=== PATIENT | female | born 1950 | race Caucasian/White ===

== ENCOUNTER 2016-02-18 08:24 | Emergency (ER) | payer MEDICARE ==
[2016-02-18] MEDS ORDERED: ONDANSETRON HCL/PF 4 MG/ 2ML VIAL IVP ONE ×2 (08:38→11:26)
[2016-02-18] MEDS ORDERED: 0.9 % SODIUM CHLORIDE 1,000 ML IV ONE (08:38)
[2016-02-18 08:48] LABS: BASOPHILS % 0.7 (0.0-1.5); EOSINOPHILS % 2.7 % (0.0-6.8); LYMPHOCYTES # 1.2 # k/uL (0.6-4.0); MEAN CORPUSCULAR HEMOGLOBIN 31.1 pg (28.0-34.0); MONOCYTES # 0.3 # k/uL (0.0-0.9); MONOCYTES % 3.5 % (0.0-11.0); NEUTROPHILS # 6.2 # k/uL (1.4-7.7)
--- NOTE | 2016-02-18 08:49 | ED Physician Documentation ---
Nausea/Vomiting/Diarrhea - HISTORIAN Historian: patient - HPI Chief Complaint: Nausea,Vomiting,Diarrhea Onset: days ago (3) Further Comments: yes (65 year old female patient presents with complaints of diarrhea x 3 days with nausea. Patient denies any vomiting. Old records reviewed.) - Associated Symptoms Diarrhea: mucous Abdominal Pain: diffuse - ROS CONST: recent illness CVS/RESP: denies: chest pain, shortness of breath, cough, dry cough, non- productive cough, productive cough, bloody cough, other GI/: constipation (last week) EYES/ENT: none MS/SKIN/LYMPH: denies: joint pain NEURO/PSYCH: none - PAST HX Past History: none Other History: other (diverticulosis, C diff) Surgeries/Procedures: cholecystectomy, hysterectomy, BLT Allergies/Adverse Reactions: Allergies Allergy/AdvReac Type Severity Reaction Status Date / Time codeine [Codeine] AdvReac Severe stomach Verified 02/18/16 08:50 nalbuphine HCl [From Nubain] AdvReac Severe stomach Verified 02/18/16 08:50 Penicillins AdvReac Intermediate Hives Verified 02/18/16 08:50 Home Medications: Ambulatory Orders Medication Instructions Recorded Docusate Sodium [Colace] 100 mg PO DAILY av 07/26/15 Citalopram Hydrobromide 10 mg PO DAILY 01/05/16 [Citalopram HBr] Carvedilol [Coreg] 6.25 mg PO BS 02/18/16 Ciprofloxacin HCl [Cipro] 500 mg PO BID #20 tablet 02/18/16 Furosemide [Lasix] 80 mg PO DAILY 02/18/16 Promethazine HCl [Phenergan] 25 mg PO Q8H PRN #30 tablet 02/18/16 metroNIDAZOLE [Flagyl] 500 mg PO Q6H #40 tablet 02/18/16 - SOCIAL HX Smoking History: cigarettes - FAMILY HX Family History: denies: none - VITAL SIGNS Vital Signs: Vital Signs Temp Pulse Resp BP Pulse Ox 98.2 F 57 L 20 112/58 94 02/18/16 12:54 02/18/16 12:54 02/18/16 12:54 02/18/16 12:54 02/18/16 12:54 - REVIEWED ASSESSMENTS Nursing Assessment Reviewed: Yes Vitals Reviewed: Yes Progress - Progress Progress: Extensive discussion with patient regarding history and diverticulosis. Patient has never seen GI, states her last colonoscopy was "I can't remember, it was that long ago". Reports nausea related to po flagyl after last ER visit. Patient has history of C Diff 08/2015, stool will likely still be positive. Last TSH 8.7 in 06/2015 - patient states there was no change in her levothyroxine. Will recheck thyroid panel. Strongly encouraged GI consult. Patient states "I had all kinds of test at [facility] for this". Discussed CT with admissions manager rn. Maximum weight is 350 pounds, recommends no imaging at [facility]. Will start IV antibiotics in ER. stool sent for C Diff. Patient has history of C Dif in August 2015. Patient medicated for pain with Morphine. Discussed treatment options - offered to transfer for GI consult, admit to [facility] for antibiotics and fluids; patient does not want to be admitted, prefers to try outpatient treatment. Concerned she cannot afford "expensive antibiotics". Coupon provided for flagyl and norco. Cipro and promethazine prescribed off $ 4. ED Results Lab/Radiology - Lab Results Lab Results: Lab Results 02/18/16 02/18/16 08:45 08:45 WBC 8.01 K/ul K/ul (4.00-12.00) RBC 4.79 M/ul M/ul (3.90-5.20) Hgb 14.9 g/dL g/dL (12.0-16.0) Hct 45.5 % % (34.5-46.5) MCV 94.9 fl fl (80.0-100.0) MCH 31.1 pg pg (28.0-34.0) MCHC 32.7 g/dL g/dL (30.0-36.0) RDW 14.8 % H % (11.3-14.3) Plt Count 260 K/mm3 K/mm3 (130-400) Neut % (Auto) 76.8 % % (39.0-79.0) Lymph % (Auto) 15.2 % L % (16.0-50.0) [place] % (Auto) 3.5 % % (0.0-11.0) Eos % (Auto) 2.7 % % (0.0-6.8) Baso % (Auto) 0.7 (0.0-1.5) Neut # 6.2 # k/uL # k/uL (1.4-7.7) Lymph # 1.2 # k/uL # k/uL (0.6-4.0) [place] # 0.3 # k/uL # k/uL (0.0-0.9) Eos # 0.2 # k/uL # k/uL (0.0-0.6) Baso # 0.1 # k/uL # k/uL (0.0-0.5) Reactive Lymphs % 1.0 % % (0.0-5.0) Reactive Lymphs # 0.1 # k/uL # k/uL (0.0-0.8) Sodium 132 mmol/L L mmol/L (136-145) Potassium 3.7 mmol/L mmol/L (3.5-5.0) Chloride 99 mmol/L mmol/L (98-110) Carbon Dioxide 33 mmol/L H mmol/L (20-32) BUN 16 mg/dL mg/dL (10-26) Creatinine 0.9 mg/dL mg/dL (0.4-1.5) Estimated Creat Clear 170 Est GFR ( Amer) > 60 (60 - ) Est GFR (Non-Af Amer) > 60 (60 - ) Glucose 123 mg/dL H mg/dL (70-99) Calcium 8.2 mg/dL L mg/dL (8.5-10.5) Total Bilirubin 0.5 mg/dL mg/dL (0.2-1.2) AST 27 U/L U/L (0-41) ALT 30 U/L U/L (0-45) Alkaline Phosphatase 75 U/L U/L (46-116) Total Protein 7.4 g/dL g/dL (6.0-8.5) Albumin 4.2 g/dL g/dL (3.0-5.5) - Orders Orders: ED Orders Category Date Time Status Place Saline Lock/IV NOW Care 02/18/16 08:38 Active CBC/PLATELET/DIFF Stat Lab 02/18/16 08:45 Completed CLOSTRRIDIUM DIFFICILE BY PCR Stat Lab 02/18/16 09:45 Received CMP Stat Lab 02/18/16 08:45 Completed SED RATE WESTERGREN (WSR) Urgent Lab 02/18/16 08:45 Received THYROID PROFILE Urgent Lab 02/18/16 08:45 Received UA W/MICRO IF INDICATED Stat Lab 02/18/16 08:38 Ordered 0.9 % Sodium Chloride [Normal Saline] 1,000 ml Med 02/18/16 08:38 Discontinued IV NOW Ketorolac Tromethamine [Toradol] Med 02/18/16 09:40 Discontinued 30 mg IVP NOW ONE Levofloxacin 500Mg/D5w 100Ml [Levaquin] 100 ml Med 02/18/16 09:56 Discontinued IV .STK-MED Levofloxacin 500Mg/D5w 100Ml [Levaquin] 500 mg Med 02/18/16 09:40 Discontinued Premix Bag [Premix Fluid] 1 bag IV NOW Morphine Sulfate [DepoDUR] Med 02/18/16 10:45 Discontinued 4 mg IVP NOW ONE Ondansetron HCl/Pf [Zofran 4 mg/2 ml] Med 02/18/16 08:38 Discontinued 4 mg IVP NOW ONE Ondansetron HCl/Pf [Zofran 4 mg/2 ml] Med 02/18/16 11:26 Discontinued 4 mg IVP NOW ONE metroNIDAZOLE/SODIUM CHLORIDE [Flagyl] 100 ml Med 02/18/16 09:56 Discontinued IV .STK-MED metroNIDAZOLE/SODIUM CHLORIDE [Flagyl] 500 mg Med 02/18/16 09:40 Discontinued Premix Bag [Premix Fluid] 1 bag IV NOW Oxygen Daily Oxygen 02/18/16 09:15 Ordered Nausea Physical Exam - EXAM General Appearance: mild distress EENT: eye inspection normal, no signs of dehydration, RACHEL Respiratory: no resp distress, chest non-tender, breath sounds normal CVS: reg rate & rhythm, heart sounds normal, equal pulses, no murmur, no gallop , PMI nml, no JVD, no friction rub, 24 Abdomen: non-tender, no organomegaly, tenderness (generalized, no specific point tenderness). No: abnml bowel sounds, McBurney's point tender, Rovsing's sign Back: non-tender, painless ROM Skin: normal color, warm/dry, NR, INT, PAL, DR Extremities: non-tender, normal range of motion, no evidence of injury, no edema , J, [employer] Neuro/Psych: oriented X3, CN's nml as tested, motor nml, sensation nml, mood/ affect nml Discharge Clincal Impression: Diverticulitis Qualifiers: Diverticulitis site: unspecified part of intestinal tract Diverticulitis bleeding: without bleeding Diverticulitis complication: without perforation or abscess Qualified Code(s): K57.92 - Diverticulitis of intestine, part unspecified, without perforation or abscess without bleeding Diarrhea Qualifiers: Diarrhea type: unspecified type Qualified Code(s): R19.7 - Diarrhea, unspecified Prescriptions: Ciprofloxacin HCl [Cipro] 500 mg PO BID #20 tablet Promethazine HCl [Phenergan] 25 mg PO Q8H PRN #30 tablet PRN Reason: Nausea / Vomiting metroNIDAZOLE [Flagyl] 500 mg PO Q6H #40 tablet Referrals: Emmanuel Taylor MD [Primary Care Provider] - 2 Days Home Medications: Ambulatory Orders Docusate Sodium [Colace] 100 mg PO DAILY av 07/26/15 Citalopram Hydrobromide [Citalopram HBr] 10 mg PO DAILY 01/05/16 Carvedilol [Coreg] 6.25 mg PO BS 02/18/16 Ciprofloxacin HCl [Cipro] 500 mg PO BID #20 tablet 02/18/16 Furosemide [Lasix] 80 mg PO DAILY 02/18/16 Promethazine HCl [Phenergan] 25 mg PO Q8H PRN #30 tablet 02/18/16 metroNIDAZOLE [Flagyl] 500 mg PO Q6H #40 tablet 02/18/16 Condition: Stable Disposition: 01 HOME, SELF-CARE Decision to Admit: NO Decision Time: 12:45
[2016-02-18 09:09] LABS: eGFR (African) > 60; eGFR (Non-African) > 60
[2016-02-18] MEDS ORDERED: KETOROLAC TROMETHAMINE 30 MG/1ML VIAL IVP ONE (09:40)
[2016-02-18] MEDS ORDERED: metroNIDAZOLE/SODIUM CHLORIDE 500 MG in PREMIX BAG 1 BAG IV ONE (09:40)
[2016-02-18] MEDS ORDERED: LEVOFLOXACIN 500MG/D5W 100ML 500 MG in PREMIX BAG 1 BAG IV ONE (09:40)
[2016-02-18] MEDS ORDERED: LEVOFLOXACIN 500MG/D5W 100ML 100 ML IV ONE (09:56)
[2016-02-18] MEDS ORDERED: metroNIDAZOLE/SODIUM CHLORIDE 100 ML IV ONE (09:56)
[2016-02-18] MEDS ORDERED: MORPHINE SULFATE 4 MG/ML DISP.SYRIN IVP ONE (10:45)
[2016-02-18 12:56] VITALS: BP 112/58
[2016-02-18 21:11] LABS: T3-UPTAKE 25.7 % (25.4-41.2)
== END 2016-02-18 12:30 | disposition home or self-care (01) ==
LOC: ED 08:24
DX: K57.92 Diverticulitis of intestine, part unspecified, without perforation or abscess without bleeding (principal); R19.7 Diarrhea, unspecified
CPT/HCPCS: 80053; 84436; 84479; 85025; 85651; 87493; J1885; J1956; J2270; J2405; J3490; J7030; 96365; 96367; 96375; 96376; 99283; S1016

== ENCOUNTER 2016-03-28 18:52 | Inpatient (IN) | payer MEDICARE, OTHER ==
[2016-03-28] MEDS ORDERED: BUDESONIDE 0.5MG/2ML AMPUL.NEB NEB ONE (20:05)
[2016-03-28] MEDS ORDERED: IPRATROPIUM/ALBUTEROL SULFATE 3 ML AMPUL.NEB NEB ONE ×3 (20:05→22:27)
[2016-03-28] MEDS ORDERED: ONDANSETRON HCL/PF 4 MG/ 2ML VIAL IVP ONE (20:07)
[2016-03-28] MEDS ORDERED: 0.9 % SODIUM CHLORIDE 1,000 ML IV ONE (20:07)
[2016-03-28] MEDS ORDERED: BUDESONIDE 0.5MG/2ML AMPUL.NEB NEB SCH (21:00)
[2016-03-28 21:11] LABS: BASOPHILS % 0.6 (0.0-1.5); EOSINOPHILS % 0.4 % (0.0-6.8); LYMPHOCYTES # 0.4 # k/uL (0.6-4.0); MEAN CORPUSCULAR HEMOGLOBIN 32.2 pg (28.0-34.0); MONOCYTES # 0.4 # k/uL (0.0-0.9); NEUTROPHILS # 6.6 # k/uL (1.4-7.7)
[2016-03-28 21:19] LABS: eGFR (African) > 60; eGFR (Non-African) > 60
[2016-03-28] MEDS ORDERED: KETOROLAC TROMETHAMINE 30 MG/1ML VIAL IVP ONE (21:29)
[2016-03-28] MEDS ORDERED: LEVOFLOXACIN 500MG/D5W 100ML 500 MG in PREMIX BAG 1 BAG IV ONE (21:56)
[2016-03-28] MEDS ORDERED: LEVOFLOXACIN 500MG/D5W 100ML 100 ML IV ONE (22:13)
[2016-03-28] MEDS ORDERED: BENZONATATE 100 MG CAPSULE PO ONE (22:24)
[2016-03-28] MEDS ORDERED: guaiFENesin DM 100 MG/10 MG/5 ML 118ML BOTTLE PO ONE (22:24)
[2016-03-28] MEDS ORDERED: methylPREDNISolone SOD SUCC 125 MG/2 ML VIAL IVP ONE (22:27)
[2016-03-28] MEDS ORDERED: methylPREDNISolone SOD SUCC 125 MG/2 ML VIAL ONE (22:28)
[2016-03-28] MEDS ORDERED: FUROSEMIDE 20 MG/2 ML VIAL IVP ONE (22:54)
--- NOTE | 2016-03-28 23:10 | History and Physical Report ---
History of Present Illnes - History of Present Illness Reason for Visit: Shortness of breath History of Present Illness: Patient presented to ER with SOB. Symptoms started the day before when she started coughing and congestion. Noted wheezing and feelings of sweating and chilling. works in a residential with influenza patients. He had been ill several days ago. Noted to have RA SAT of 85%. Improved with O2, duonebs, and IV steroids. CXR showed likely RLL infiltrate. Patient will be admitted for treatment. - Past Medical History Cardiac: CHF (EF 25% in 2009 - systolic; Was to see Dr. Coronel 12/01 for Echo but did not keep appt), HTN, Hyperlipidemia, Other (Morbid obesity, thyroid cancer) Pulmonary: COPD. denies: Pulmonary embolus Gastrointestinal: Diverticulosis (with h/o diverticulitis.) Infectious Disease: Other (C. diff 08/01) Endocrine: Hypothyroidism. denies: Diabetes - Past Surgical History Past Surgical History: Cholecystectomy, Hysterectomy, Tubal Ligation, Other ( thyroidectomy) - Past Family History Father Family History: Cancer, Mother Family History: CAD, Hypertension, Other (CKD) - Past Social History Smoke: # pack years (40+), 1 pack per day Occupation: On disability for obesity/back pain/CHF Alcohol: Rare Drugs: None Lives: Roommate (significant other who is also her ex ) - Health Maintenance Health Maintenance: Tetanus (2015 Tdap), Pneumococcal Vaccine (Prevnar 08/31) Influenza Vaccine: Current for this Influenza Season Pneumonia Vaccine: Yes Resuscitation Status: Full Code Review of Systems - Review of Systems Constitutional: Chills, Sweats, Weakness. negative: Fever Eyes: negative: pain ENT: Throat Pain ("Scratchy"). negative: Ear Pain, Ear Discharge Respiratory: Cough, Shortness of Breath, Sputum, Wheezing Cardiovascular: negative: Chest Pain, Palpitations Gastrointestinal: negative: Nausea, Vomiting, Abdominal Pain, Diarrhea Genitourinary: negative: Dysuria Musculoskeletal: negative: Back Pain Skin: negative: Rash Neurological: Weakness - Medications/Allergies Allergies/Adverse Reactions: Allergies Allergy/AdvReac Type Severity Reaction Status Date / Time codeine [Codeine] AdvReac Severe stomach Verified 02/18/16 08:50 nalbuphine HCl [From Nubain] AdvReac Severe stomach Verified 02/18/16 08:50 Penicillins AdvReac Intermediate Hives Verified 02/18/16 08:50 Home Medications: Home Medications Ranitidine HCl 300 mg PO 0717 03/31/16 Current Inpatient Medications: Current Inpatient Medications Budesonide (Pulmicort) 0.5 mg NEB BID CHINTAN Last Admin: 03/28/16 20:10 Dose: 0.5 mg Exam - Exam General: Alert, Oriented to Person, Oriented to Place, Oriented to Time, Cooperative HEENT: Atraumatic, PERRLA, EOMI, Mouth Mucous membr. moist/Rosa Neck: Normal Range of Motion Lungs: Wheezes Cardiovascular: Regular rate Abdomen: Normal bowel sounds, Soft, No tenderness Integumentary: Normal Extremities: No edema Neurological: Generalized Weakness Psych/Mental Status: Mental status NL, Mood NL, Appropriate Affect, Intact Judgment Assessment/Plan - Assessment/Plan (1) CAD (coronary artery disease) Status: Chronic Current Visit: No Qualifiers: Coronary Disease-Associated Artery/Lesion type: [place] artery [place] vs. transplanted heart: [place] heart Associated angina: without angina Qualified Code(s): I25.10 - Atherosclerotic heart disease of [place] coronary artery without angina pectoris Plan: Awaiting cardiac labs at this time to r/o any cardiac injury. (2) H/O CHF Status: Acute Current Visit: Yes Plan: Given CXR appearance of infiltrate vs possible early overload, patient was given IV lasix in ER. BNP pending. Encouraged her to get ECHO as an outpatient. (3) Community acquired bacterial pneumonia Status: Acute Current Visit: Yes Plan: IV levaquin and zithromax started. Blood cultures pending. O2 to keep SAT's > 90%. Duo nebs and IV steroids. Influenza testing negative. Will send Respiratory Viral Pane (4) Hypothyroidism Status: Chronic Current Visit: No (5) Obesity (BMI 35.0-39.9 without comorbidity) Status: Chronic Current Visit: No (6) Tobacco user Status: Chronic Current Visit: No Plan: Smoking cessation counseling by staff. (7) COPD exacerbation Status: Acute Current Visit: Yes Plan: IV steroids, O2, duonebs ordered. VTE Assessment - RISK FACTOR SCORE VTE RISK FACTOR SCORES: AGE OVER 60 YEARS, ACUTE INFECTION OTHER THEN SEPSIS, OBESITY - RISK VTE HIGH RISK: SCORE OF 3-4 (RISK PROXIMAL DVT 4-8%) PROPHYLAXIS NEEDED
[2016-03-28] MEDS ORDERED: BISACODYL 5 MG TABLET.DR PO PRN (23:24)
[2016-03-28] MEDS ORDERED: SALINE FLUSH 10 ML DISP.SYRIN IVF ONE (23:27)
[2016-03-28] MEDS ORDERED: 0.9 % SODIUM CHLORIDE 250 ML IV ONE (23:45)
[2016-03-28] MEDS ORDERED: AZITHROMYCIN 500 MG VIAL IV ONE (23:45)
[2016-03-28] MEDS: ONDANSETRON HCL 4 MG TAB.RAPDIS PO PRN (23:50)
[2016-03-28] MEDS: 0.9 % SODIUM CHLORIDE 1,000 ML IV SCH (23:52)
[2016-03-28] MEDS: POTASSIUM CHLORIDE 10 MEQ TABLET.ER PO SCH (23:52)
[2016-03-28] MEDS: AZITHROMYCIN 500 MG in 0.9 % SODIUM CHLORIDE 250 ML IV SCH (23:56)
[2016-03-29] MEDS: ENOXAPARIN SODIUM 30 MG/0.3 ML DISP.SYRIN SQ SCH ×2 (00:33→20:31)
[2016-03-29] MEDS: ALPRAZOLAM 0.5 MG TABLET PO PRN ×2 (00:38→20:34)
[2016-03-29 00:53] VITALS: BMI 54.6
--- NOTE | 2016-03-29 01:46 | Diagnostic Imaging Report ---
MARYANN FOSS~ [facility] [address] [address] ~ ~ ~ ~ Report Submission Date: Mar 28, 2016 8:52:59 PM FILTER CHANGER Patient ~ Study Name: ALESSIA JEFF ~ Date: Mar 28, 2016 8:29:19 PM FILTER CHANGER ~ Modality Type: CR Gender: F ~ Description: CHEST : 50 ~ Institution: [facility] Physician: MARYANN FOSS ~ ~ ~ ~ Portable chest History: Dyspnea and cough Findings: The exam is limited by obesity. Cardiomegaly, pulmonary vascular congestion, and right basilar /perihilar infiltrate or edema are observed. Small pleural effusions cannot be excluded. Right lung infiltrate or edema has increased since the July 06, 2015 exam. Impression: 1. Cardiomegaly and pulmonary vascular congestion without change. 2. Right basilar and perihilar infiltrates versus edema. 3. The left lower lobe is obscured due to obesity and portable technique. ~ Electronically signed on Mar 28, 2016 8:52:59 PM FILTER CHANGER by: Sagar RASHID
[2016-03-29] MEDS: guaiFENesin DM 100 MG/10 MG/5 ML 118ML BOTTLE PO SCH ×6 (05:13→20:32)
[2016-03-29] MEDS: IPRATROPIUM/ALBUTEROL SULFATE 3 ML AMPUL.NEB NEB SCH ×6 (05:13→22:03)
[2016-03-29] MEDS: BUDESONIDE 0.5MG/2ML AMPUL.NEB NEB SCH ×6 (05:13→22:05)
[2016-03-29 05:14] LABS: APPEARANCE,URINE CLOUDY (CLEAR); COLOR,URINE AMBER (YELLOW); OCCULT BLOOD,URINE TRACE-INTACT (NEGATIVE)
[2016-03-29] MEDS ORDERED: SALINE FLUSH 10 ML DISP.SYRIN IVF ONE ×3 (05:57→19:56)
[2016-03-29] MEDS ORDERED: FUROSEMIDE 40 MG/4 ML VIAL ONE ×2 (06:02→15:20)
[2016-03-29 06:34] LABS: MEAN CORPUSCULAR HEMOGLOBIN 32.1 pg (28.0-34.0)
[2016-03-29] MEDS: LEVOTHYROXINE SODIUM 100 MCG TABLET PO SCH (06:45)
--- NOTE | 2016-03-29 07:01 | ED Physician Documentation ---
Upper Respiratory Symptoms - HISTORIAN Historian: patient - HPI Stated Complaint: nausea, hurts all over Chief Complaint: Cough/ Upper Respiratory Additional Information: nausea, headache, prod. cough Onset: days ago (2) Duration: sudden-Onset Context: denies: recent foreign travel, insect bite(s), tick(s), recent chemotherapy, multiple patients, same sx Severity: moderate Associated Symptoms: fever, productive cough Worsened by Deep Breath: No Further Comments: no - ROS CONST/EYES: denies: weakness, eye redness, eye itching CVS/RESP: shortness of breath (exacerbated copd), other (cough) LYMPH: denies: leg swelling, rash, swollen glands, ankle swelling GI/: none NEURO/PSYCH: other (headache) MS/SKIN: denies: joint pain, muscle aches, rash - PAST HX Lung Disease: COPD, other Other History: other (cad, chf, hypothyroidism) Surgeries/Procedures: cholecystectomy, hysterectomy, BLT, other (ortho) Immunizations: referred to PCP Allergies/Adverse Reactions: Allergies Allergy/AdvReac Type Severity Reaction Status Date / Time codeine [Codeine] AdvReac Severe stomach Verified 02/18/16 08:50 nalbuphine HCl [From Nubain] AdvReac Severe stomach Verified 02/18/16 08:50 Penicillins AdvReac Intermediate Hives Verified 02/18/16 08:50 Home Medications: Ambulatory Orders Medication Instructions Recorded Docusate Sodium [Colace] 100 mg PO DAILY av 07/26/15 Citalopram Hydrobromide 10 mg PO DAILY 01/05/16 [Citalopram HBr] Carvedilol [Coreg] 6.25 mg PO BS 02/18/16 Ciprofloxacin HCl [Cipro] 500 mg PO BID #20 tablet 02/18/16 Furosemide [Lasix] 80 mg PO DAILY 02/18/16 - SOCIAL HX Smoking History: cigarettes Alcohol Use: occasionally Drug Use: none - FAMILY HX Family History: other (cancer, htn, cad) - VITAL SIGNS Vital Signs: Vital Signs Temp Pulse Resp BP Pulse Ox 98.6 F 59 L 22 113/67 95 03/29/16 05:44 03/29/16 05:44 03/29/16 05:44 03/29/16 05:44 03/29/16 05:44 - REVIEWED ASSESSMENTS Nursing Assessment Reviewed: Yes Vitals Reviewed: Yes Progress - Results/Orders Results/Orders: ua, cmp, cbc, trop, bnp, amylase, flu a and b, cxr, blood cultures ordered - Progress Progress: pt. treated with levaquin, solu medrol, robitussin, potassium, zofran, pulmicort , normal saline, lasix, tessalon perles, duoneb in er Critical Care Note - Critical Care Note Total Time (mins): 0 ED Results Lab/Radiology - Lab Results Lab Results: Lab Results 03/28/16 03/28/16 03/28/16 21:50 20:54 20:54 WBC 7.40 K/ul K/ul (4.00-12.00) RBC 4.72 M/ul M/ul (3.90-5.20) Hgb 15.2 g/dL g/dL (12.0-16.0) Hct 44.3 % % (34.5-46.5) MCV 93.8 fl fl (80.0-100.0) MCH 32.2 pg pg (28.0-34.0) MCHC 34.3 g/dL g/dL (30.0-36.0) RDW 14.7 % H % (11.3-14.3) Plt Count 196 K/mm3 K/mm3 (130-400) Neut % (Auto) 88.3 % H % (39.0-79.0) Lymph % (Auto) 5.2 % L % (16.0-50.0) [place] % (Auto) 5.0 % % (0.0-11.0) Eos % (Auto) 0.4 % % (0.0-6.8) Baso % (Auto) 0.6 (0.0-1.5) Neut # 6.6 # k/uL # k/uL (1.4-7.7) Lymph # 0.4 # k/uL L # k/uL (0.6-4.0) [place] # 0.4 # k/uL # k/uL (0.0-0.9) Eos # 0.0 # k/uL # k/uL (0.0-0.6) Baso # 0.0 # k/uL # k/uL (0.0-0.5) Reactive Lymphs % 0.4 % % (0.0-5.0) Reactive Lymphs # 0.0 # k/uL # k/uL (0.0-0.8) Sodium 134 mmol/L L mmol/L (136-145) Potassium 4.1 mmol/L mmol/L (3.5-5.0) Chloride 97 mmol/L L mmol/L (98-110) Carbon Dioxide 35 mmol/L H mmol/L (20-32) BUN 13 mg/dL mg/dL (10-26) Creatinine 0.7 mg/dL mg/dL (0.4-1.5) Estimated Creat Clear 222 Est GFR ( Amer) > 60 (60 - ) Est GFR (Non-Af Amer) > 60 (60 - ) Glucose 120 mg/dL H mg/dL (70-99) Calcium 8.4 mg/dL L mg/dL (8.5-10.5) Total Bilirubin 0.5 mg/dL mg/dL (0.2-1.2) AST 62 U/L H U/L (0-41) ALT 40 U/L U/L (0-45) Alkaline Phosphatase 76 U/L U/L (46-116) Total Protein 7.8 g/dL g/dL (6.0-8.5) Albumin 4.6 g/dL g/dL (3.0-5.5) Amylase 42 U/L U/L (20-104) Urine Color Gaby (YELLOW) Urine Appearance Cloudy H (CLEAR) Urine pH 7.0 (5.0 - 8.0) Ur Specific [place] 1.025 (1.010-1.030) Urine Protein 2+ mg/dL H mg/dL (NEGATIVE) Urine Ketones Negative mg/dL mg/dL (NEGATIVE) Urine Occult Blood Trace-intact H (NEGATIVE) Urine Nitrite Negative (NEGATIVE) Urine Bilirubin Negative (NEGATIVE) Urine Urobilinogen 1.0 Eu Eu (0.2-1.0) Ur Leukocyte Esterase Negative (NEGATIVE) Urine Glucose Negative mg/dL mg/dL (NEGATIVE) - Radiology Radiology Impressions: cxr right sided infiltrate - Orders Orders: ED Orders Category Date Time Status Place Saline Lock/IV Now Care 03/28/16 20:07 Completed CHEST 1 VIEW [RAD] Routine Exams 03/28/16 Completed AMYLASE Routine Lab 03/28/16 20:54 Completed CBC/PLATELET/DIFF Routine Lab 03/28/16 20:54 Completed CMP Routine Lab 03/28/16 20:54 Completed 0.9 % Sodium Chloride [Normal Saline] 1,000 ml Med 03/28/16 20:07 Discontinued IV Q1H Benzonatate [Tessalon] Med 03/28/16 22:24 Discontinued 200 mg PO NOW ONE Budesonide [Pulmicort] Med 03/28/16 20:05 Discontinued 0.5 mg NEB .STK-MED ONE Budesonide [Pulmicort] Med 03/28/16 21:00 Discontinued 0.5 mg NEB BID Ipratropium/Albuterol Sulfate [Duoneb] Med 03/28/16 20:05 Discontinued 3 ml NEB .STK-MED ONE Ipratropium/Albuterol Sulfate [Duoneb] Med 03/28/16 20:07 Discontinued 3 ml NEB NOW ONE Ipratropium/Albuterol Sulfate [Duoneb] Med 03/28/16 22:27 Discontinued 3 ml NEB NOW ONE Ketorolac Tromethamine [Toradol] Med 03/28/16 21:29 Discontinued 30 mg IVP NOW ONE Levofloxacin 500Mg/D5w 100Ml [Levaquin] 100 ml Med 03/28/16 22:13 Discontinued IV .STK-MED Levofloxacin 500Mg/D5w 100Ml [Levaquin] 500 mg Med 03/28/16 21:56 Discontinued Premix Bag [Premix Fluid] 1 bag IV NOW Ondansetron HCl/Pf [Zofran 4 mg/2 ml] Med 03/28/16 20:07 Discontinued 8 mg IVP NOW ONE guaiFENesin DM [Robitussin Dm] Med 03/28/16 22:24 Discontinued 10 ml PO NOW ONE methylPREDNISolone SOD SUCC [Solu-MEDROL] Med 03/28/16 22:28 Discontinued 125 mg .ROUTE .STK-MED ONE methylPREDNISolone SOD SUCC [Solu-MEDROL] Med 03/28/16 22:27 Discontinued 125 mg IVP NOW ONE Upper Respiratory Symptoms - EXAM General Appearance: alert, moderate distress EENT: eyes nml inspection, nml ENT inspection, lids & conjunct. nml, PERRL, ear nml Neck: normal inspection, thyroid normal, supple Respiratory: no resp. distress, decreased air movement, wheezes. No: rales, rhonchi Abdomen: non-tender, no organomegaly, nml bowel sounds, no distention CVS: reg rate & rhythm, heart sounds normal, equal pulses, no murmur, no gallop , PMI nml, no JVD Skin: color nml, no rash, diaphoresis (warm) Extremities: non-tender, normal range of motion, no evidence of injury, no edema Neuro/Psych: oriented x3, neuro intact, mood/affect nml Discharge Clincal Impression: Pneumonia Qualifiers: Pneumonia type: due to unspecified organism Laterality: right Lung location: middle lobe of lung Qualified Code(s): J18.1 - Lobar pneumonia, unspecified organism Home Medications: Ambulatory Orders Docusate Sodium [Colace] 100 mg PO DAILY av 07/26/15 Citalopram Hydrobromide [Citalopram HBr] 10 mg PO DAILY 01/05/16 Carvedilol [Coreg] 6.25 mg PO BS 02/18/16 Ciprofloxacin HCl [Cipro] 500 mg PO BID #20 tablet 02/18/16 Furosemide [Lasix] 80 mg PO DAILY 02/18/16 Comments: case discussed with Dr. Tatum, accepts admission Condition: Stable Disposition: ADMITTED INPATIENT Decision to Admit: [id number] Decision Time: 23:00
[2016-03-29 07:07] LABS: eGFR (African) > 60; eGFR (Non-African) > 60
[2016-03-29] MEDS: ONDANSETRON HCL 4 MG TAB.RAPDIS PO PRN (07:38)
[2016-03-29] MEDS: CARVEDILOL 6.25 MG TABLET PO SCH ×2 (08:07→18:00)
[2016-03-29] MEDS: CITALOPRAM HYDROBROMIDE 20 MG TABLET PO SCH (08:08)
[2016-03-29] MEDS: POTASSIUM CHLORIDE 10 MEQ TABLET.ER PO SCH ×2 (08:10→20:31)
[2016-03-29] MEDS: NAPROXEN 250 MG TABLET PO SCH ×2 (08:10→20:32)
[2016-03-29] MEDS ORDERED: LEVOFLOXACIN 500MG/D5W 100ML 100 ML IV ONE (08:14)
[2016-03-29] MEDS: LEVOFLOXACIN 500MG/D5W 100ML 500 MG in PREMIX BAG 1 BAG IV SCH (08:14)
--- NOTE | 2016-03-29 08:19 | Diagnostic Imaging Report ---
[facility] [address] [facility] [address] [address] Report Submission Date: Mar 29, 2016 8:13:44 AM RANGE TECHNICIAN Patient Study Name: ALESSIA JEFF Date: Mar 29, 2016 7:46:33 AM RANGE TECHNICIAN Modality Type: CR Gender: F Description: CHEST : 50 Institution: [facility] Physician: [facility] [place]/MED SURG Chest PA and lateral views Clinical history: Cough and fever, history of prior pneumonia There is cardiomegaly with atherosclerotic thoracic aorta . Mild pulmonary venous congestion. Prominent vasculature in the lung bases could be consistent with bibasilar infiltrates , very similar to the previous study of March 28, [address] of the chest without IV contrast might be helpful in this case to differentiate between pulmonary venous congestion or pneumonia . Impression: As above Electronically signed on Mar 29, 2016 8:13:44 AM RANGE TECHNICIAN by: Emmanuel RASHID
[2016-03-29] MEDS: FUROSEMIDE 40 MG/4 ML VIAL IVP SCH ×2 (08:52→20:43)
[2016-03-29 08:56] LABS: MONOCYTES % 1 % (0-11); SEGMENTED NEUTROPHILS % 57 % (39-79)
[2016-03-29] MEDS ORDERED: methylPREDNISolone SOD SUCC 125 MG/2 ML VIAL IVP SCH (09:00)
[2016-03-29] MEDS: 0.9 % SODIUM CHLORIDE 1,000 ML IV SCH ×2 (10:35→22:03)
--- NOTE | 2016-03-29 12:52 | Inpatient Progress Note ---
Subjective - Required Recertification Statement I anticipate X number of days because-include discharge plan: 2 days - Review of Systems Events since last encounter: patient states that she is doing some better than yesterday. Patient continued to have a cough productive of some white to green phlegm. No hemoptysis noted. Patient states that her shortness of breath and dyspnea. Does seem to be improved. Patient continued to have some fever or chills. Patient denies any chest pain. patient does feel that the hyperlipidemia nebulization treatment are helping some. General: Chills (6), Other (fever) Pulmonary: Dyspnea, Cough. Denies: Pleuritic Chest Pain Cardiovascular: Denies: Chest Pain, Palpitations Gastrointestinal: Denies: Nausea, Vomiting, Abdominal Pain Objective - Exam Vitals and I&O: Vital Signs Temp 97.9 F 03/29/16 09:00 Pulse 68 03/29/16 11:00 Resp 18 03/29/16 10:00 BP 136/63 03/29/16 09:00 Pulse Ox 95 03/29/16 05:44 Intake & Output 03/28/16 03/29/16 03/29/16 23:59 11:59 23:59 Intake Total 572 Balance 572 Weight 149 kg 149 kg Intake: IV 572 Right Wrist 572 Other: Voiding Method Bedside Commode Bedside Commode # Voids 2 General: Alert, Oriented to Person, Oriented to Place, Oriented to Time Neck: Supple, No JVD Lungs: Wheezes (mild expiratory wheezing with forced espiration). No: Rales, Rhonchi Cardiovascular: Regular rate, Normal S1, Normal S2, No murmurs Abdomen: Normal bowel sounds, Soft, No tenderness, No hepatospenomegaly, Other ( obeses) Extremities: No clubbing, No cyanosis Skin: Normal, [place], Warm, Dry Psych/Mental Status: Mental status NL, Mood NL, Appropriate Affect, Intact Judgment - Results Results: Laboratory Results WBC 6.50 K/ul (4.00-12.00) 03/29/16 06:00 RBC 4.61 M/ul (3.90-5.20) 03/29/16 06:00 Hgb 14.8 g/dL (12.0-16.0) 03/29/16 06:00 Hct 44.1 % (34.5-46.5) 03/29/16 06:00 MCV 95.6 fl (80.0-100.0) 03/29/16 06:00 MCH 32.1 pg (28.0-34.0) 03/29/16 06:00 MCHC 33.5 g/dL (30.0-36.0) 03/29/16 06:00 RDW 14.7 % (11.3-14.3) H 03/29/16 06:00 Plt Count 192 K/mm3 (130-400) 03/29/16 06:00 Neut % (Auto) 88.3 % (39.0-79.0) H 03/28/16 20:54 Lymph % (Auto) 5.2 % (16.0-50.0) L 03/28/16 20:54 [place] % (Auto) 5.0 % (0.0-11.0) 03/28/16 20:54 Eos % (Auto) 0.4 % (0.0-6.8) 03/28/16 20:54 Baso % (Auto) 0.6 (0.0-1.5) 03/28/16 20:54 Neut # 6.6 # k/uL (1.4-7.7) 03/28/16 20:54 Lymph # 0.4 # k/uL (0.6-4.0) L 03/28/16 20:54 [place] # 0.4 # k/uL (0.0-0.9) 03/28/16 20:54 Eos # 0.0 # k/uL (0.0-0.6) 03/28/16 20:54 Baso # 0.0 # k/uL (0.0-0.5) 03/28/16 20:54 Seg Neutrophils % 57 % (39-79) 03/29/16 06:00 Band Neutrophils % 35 % (0-12) H 03/29/16 06:00 Lymphocytes % 7 % (16-50) L 03/29/16 06:00 Reactive Lymphs % 0.4 % (0.0-5.0) 03/28/16 20:54 Monocytes % 1 % (0-11) 03/29/16 06:00 Reactive Lymphs # 0.0 # k/uL (0.0-0.8) 03/28/16 20:54 Plt Morphology Comment Normal (NORMAL) 03/29/16 06:00 RBC Morph Comment Normal (NORMAL) 03/29/16 06:00 Sodium 129 mmol/L (136-145) L 03/29/16 06:00 Potassium 4.0 mmol/L (3.5-5.0) 03/29/16 06:00 Chloride 90 mmol/L (98-110) L 03/29/16 06:00 Carbon Dioxide 39 mmol/L (20-32) H 03/29/16 06:00 BUN 10 mg/dL (10-26) 03/29/16 06:00 Creatinine 0.7 mg/dL (0.4-1.5) 03/29/16 06:00 Estimated Creat Clear 221 03/29/16 06:00 Est GFR ( Amer) > 60 (60-) 03/29/16 06:00 Est GFR (Non-Af Amer) > 60 (60-) 03/29/16 06:00 Glucose 149 mg/dL (70-99) H 03/29/16 06:00 Calcium 7.8 mg/dL (8.5-10.5) L 03/29/16 06:00 Total Bilirubin 0.4 mg/dL (0.2-1.2) 03/29/16 06:00 AST 66 U/L (0-41) H 03/29/16 06:00 ALT 48 U/L (0-45) H 03/29/16 06:00 Alkaline Phosphatase 75 U/L (46-116) 03/29/16 06:00 NT-Pro-B Natriuret Pep 866.7 pg/mL (15.0-125.0) H 03/29/16 06:00 Total Protein 7.5 g/dL (6.0-8.5) 03/29/16 06:00 Albumin 4.3 g/dL (3.0-5.5) 03/29/16 06:00 Amylase 42 U/L (20-104) 03/28/16 20:54 Urine Color Gaby (YELLOW) 03/28/16 21:50 Urine Appearance Cloudy (CLEAR) H 03/28/16 21:50 Urine pH 7.0 (5.0 - 8.0) 03/28/16 21:50 Ur Specific [place] 1.025 (1.010-1.030) 03/28/16 21:50 Urine Protein 2+ mg/dL (NEGATIVE) H 03/28/16 21:50 Urine Ketones Negative mg/dL (NEGATIVE) 03/28/16 21:50 Urine Occult Blood Trace-intact (NEGATIVE) H 03/28/16 21:50 Urine Nitrite Negative (NEGATIVE) 03/28/16 21:50 Urine Bilirubin Negative (NEGATIVE) 03/28/16 21:50 Urine Urobilinogen 1.0 Eu (0.2-1.0) 03/28/16 21:50 Ur Leukocyte Esterase Negative (NEGATIVE) 03/28/16 21:50 Urine Glucose Negative mg/dL (NEGATIVE) 03/28/16 21:50 Assessment/Plan - Assessment/Plan (1) Pneumonia Status: Acute Current Visit: Yes Qualifiers: Pneumonia type: due to unspecified organism Laterality: right Lung location: middle lobe of lung Qualified Code(s): J18.1 - Lobar pneumonia, unspecified organism Assessment: patient will be continued on present antibiotic treatment. Patient will be continued. Hyperlipidemia nebulization. Treatment. I will decrease patient's steroids that she is getting IV. patient's WBC count is still normal at 6500. The patient does have fairly significant left shift with 57 seg and 35 bands. (2) Congestive heart failure Status: Acute Current Visit: No Assessment: patient does appear to have a component of congestive heart failure on with her present illness. Patient BNP was elevated some. We'll continue with IV Lasix at this time.
[2016-03-29] MEDS ORDERED: NICOTINE 14mg PATCH.TD24 TD SCH (13:00)
[2016-03-29] MEDS ORDERED: 0.9 % SODIUM CHLORIDE 250 ML IV ONE (19:55)
[2016-03-29] MEDS ORDERED: AZITHROMYCIN 500 MG VIAL IV ONE (19:56)
[2016-03-29] MEDS: AZITHROMYCIN 500 MG in 0.9 % SODIUM CHLORIDE 250 ML IV SCH (20:42)
[2016-03-29] MEDS: methylPREDNISolone SOD SUCC 40 MG/ML VIAL IVP SCH (20:42)
[2016-03-30] MEDS ORDERED: 0.9 % SODIUM CHLORIDE 1,000 ML IV ONE (03:13)
[2016-03-30] MEDS: 0.9 % SODIUM CHLORIDE 1,000 ML IV SCH ×2 (03:15→14:41)
[2016-03-30] MEDS: guaiFENesin DM 100 MG/10 MG/5 ML 118ML BOTTLE PO SCH ×6 (03:18→22:08)
[2016-03-30] MEDS: BUDESONIDE 0.5MG/2ML AMPUL.NEB NEB SCH ×6 (03:43→22:07)
[2016-03-30] MEDS: IPRATROPIUM/ALBUTEROL SULFATE 3 ML AMPUL.NEB NEB SCH ×6 (03:43→22:05)
[2016-03-30] MEDS: ACETAMINOPHEN 500 MG TABLET PO PRN ×2 (03:45→13:00)
[2016-03-30] MEDS ORDERED: SALINE FLUSH 10 ML DISP.SYRIN IVF ONE (05:17)
[2016-03-30] MEDS ORDERED: LEVOFLOXACIN 500MG/D5W 100ML 100 ML IV ONE (05:18)
[2016-03-30] MEDS ORDERED: FUROSEMIDE 40 MG/4 ML VIAL ONE ×2 (05:18→13:49)
[2016-03-30] MEDS: LEVOTHYROXINE SODIUM 100 MCG TABLET PO SCH (05:49)
[2016-03-30 06:59] LABS: BASOPHILS % 0.3 (0.0-1.5); EOSINOPHILS % 0.2 % (0.0-6.8); LYMPHOCYTES # 0.5 # k/uL (0.6-4.0); MEAN CORPUSCULAR HEMOGLOBIN 32.1 pg (28.0-34.0); MONOCYTES # 0.2 # k/uL (0.0-0.9); MONOCYTES % 3.5 % (0.0-11.0); NEUTROPHILS # 5.3 # k/uL (1.4-7.7)
[2016-03-30 07:24] LABS: eGFR (African) > 60; eGFR (Non-African) > 60
[2016-03-30] MEDS: CARVEDILOL 6.25 MG TABLET PO SCH ×2 (08:49→18:10)
[2016-03-30] MEDS: methylPREDNISolone SOD SUCC 40 MG/ML VIAL IVP SCH ×2 (09:06→19:56)
[2016-03-30] MEDS: FUROSEMIDE 40 MG/4 ML VIAL IVP SCH ×2 (09:13→20:03)
[2016-03-30] MEDS: CITALOPRAM HYDROBROMIDE 20 MG TABLET PO SCH (09:50)
[2016-03-30] MEDS: LEVOFLOXACIN 500MG/D5W 100ML 500 MG in PREMIX BAG 1 BAG IV SCH (09:50)
[2016-03-30] MEDS: NAPROXEN 250 MG TABLET PO SCH ×2 (09:51→20:00)
[2016-03-30] MEDS: POTASSIUM CHLORIDE 10 MEQ TABLET.ER PO SCH ×2 (09:51→19:59)
[2016-03-30] MEDS: ONDANSETRON HCL 4 MG TAB.RAPDIS PO PRN (15:19)
[2016-03-30] MEDS ORDERED: AZITHROMYCIN 500 MG VIAL IV ONE (19:45)
[2016-03-30] MEDS ORDERED: 0.9 % SODIUM CHLORIDE 250 ML IV ONE (19:45)
[2016-03-30] MEDS: ALPRAZOLAM 0.5 MG TABLET PO PRN (19:58)
[2016-03-30] MEDS: ENOXAPARIN SODIUM 30 MG/0.3 ML DISP.SYRIN SQ SCH (19:59)
[2016-03-30] MEDS: AZITHROMYCIN 500 MG in 0.9 % SODIUM CHLORIDE 250 ML IV SCH (19:59)
[2016-03-30] MEDS ORDERED: NITROGLYCERIN 0.4 MG TAB.SUBL SL ONE ×2 (20:21→21:40)
[2016-03-30] MEDS ORDERED: FUROSEMIDE 20 MG/2 ML VIAL IVP ONE (20:22)
[2016-03-30 21:13] LABS: CREATINE KINASE MB 3.1 ng/mL (0.3-5.0)
[2016-03-30] MEDS: SALINE FLUSH 10 ML DISP.SYRIN IV SCH (22:07)
--- NOTE | 2016-03-30 22:59 | Inpatient Progress Note ---
Subjective - Required Recertification Statement I anticipate X number of days because-include discharge plan: 2 days - Review of Systems Events since last encounter: Patient states that she seems some better today. Is still hivning some difficulties with breating but seems improved. Has a mild cough productive of yellow to white phlegm. Still having some wheezing at times. Is ambulating in her room some. Denies any chest pain or pressure. Appetite is fair. General: Denies: Chills HEENT: Head Aches Pulmonary: Dyspnea, Cough Cardiovascular: Denies: Chest Pain, Palpitations, Orthopnea, Edema Gastrointestinal: Denies: Nausea, Vomiting, Abdominal Pain Objective - Exam Vitals and I&O: Vital Signs Temp 98.2 F 03/30/16 22:00 Pulse 71 03/30/16 22:00 Resp 22 03/30/16 22:00 BP 150/81 03/30/16 22:00 Pulse Ox 93 03/30/16 22:00 Intake & Output 03/29/16 03/30/16 03/30/16 23:59 11:59 23:59 Intake Total 1430 120 680 Output Total 1250 Balance 1430 120 -570 Weight 146.51 kg Intake: IV 1090 Right Wrist 1090 Oral 340 120 680 Output: Urine 1250 Other: Voiding Method Bedside Commode Bedside Commode Bedside Commode # Voids 1 2 3 General: Alert, Oriented to Person, Oriented to Place, Oriented to Time, Cooperative, No acute distress Neck: Supple, No JVD Lungs: Normal air movement, Speaks full Sentences, Rales (few scattered bialterally). No: Wheezes, Rhonchi, Chest Wall Tenderness Cardiovascular: Regular rate, Normal S1, Normal S2, No murmurs Abdomen: Normal bowel sounds, Soft Extremities: Other (mild edema) Psych/Mental Status: Mental status NL, Mood NL, Appropriate Affect, Intact Judgment - Results Results: Laboratory Results WBC 6.10 K/ul (4.00-12.00) 03/30/16 06:30 RBC 4.67 M/ul (3.90-5.20) 03/30/16 06:30 Hgb 15.0 g/dL (12.0-16.0) 03/30/16 06:30 Hct 45.0 % (34.5-46.5) 03/30/16 06:30 MCV 96.2 fl (80.0-100.0) 03/30/16 06:30 MCH 32.1 pg (28.0-34.0) 03/30/16 06:30 MCHC 33.3 g/dL (30.0-36.0) 03/30/16 06:30 RDW 14.7 % (11.3-14.3) H 03/30/16 06:30 Plt Count 219 K/mm3 (130-400) 03/30/16 06:30 Neut % (Auto) 87.3 % (39.0-79.0) H 03/30/16 06:30 Lymph % (Auto) 8.1 % (16.0-50.0) L 03/30/16 06:30 [place] % (Auto) 3.5 % (0.0-11.0) 03/30/16 06:30 Eos % (Auto) 0.2 % (0.0-6.8) 03/30/16 06:30 Baso % (Auto) 0.3 (0.0-1.5) 03/30/16 06:30 Neut # 5.3 # k/uL (1.4-7.7) 03/30/16 06:30 Lymph # 0.5 # k/uL (0.6-4.0) L 03/30/16 06:30 [place] # 0.2 # k/uL (0.0-0.9) 03/30/16 06:30 Eos # 0.0 # k/uL (0.0-0.6) 03/30/16 06:30 Baso # 0.0 # k/uL (0.0-0.5) 03/30/16 06:30 Seg Neutrophils % 57 % (39-79) 03/29/16 06:00 Band Neutrophils % 35 % (0-12) H 03/29/16 06:00 Lymphocytes % 7 % (16-50) L 03/29/16 06:00 Reactive Lymphs % 0.6 % (0.0-5.0) 03/30/16 06:30 Monocytes % 1 % (0-11) 03/29/16 06:00 Reactive Lymphs # 0.0 # k/uL (0.0-0.8) 03/30/16 06:30 Plt Morphology Comment Normal (NORMAL) 03/29/16 06:00 RBC Morph Comment Normal (NORMAL) 03/29/16 06:00 Sodium 130 mmol/L (136-145) L 03/30/16 06:30 Potassium 4.0 mmol/L (3.5-5.0) 03/30/16 06:30 Chloride 86 mmol/L (98-110) L 03/30/16 06:30 Carbon Dioxide 40 mmol/L (20-32) H 03/30/16 06:30 BUN 17 mg/dL (10-26) 03/30/16 06:30 Creatinine 0.9 mg/dL (0.4-1.5) 03/30/16 06:30 Estimated Creat Clear 169 03/30/16 06:30 Est GFR ( Amer) > 60 (60-) 03/30/16 06:30 Est GFR (Non-Af Amer) > 60 (60-) 03/30/16 06:30 Glucose 132 mg/dL (70-99) H 03/30/16 06:30 Calcium 7.7 mg/dL (8.5-10.5) L 03/30/16 06:30 Total Bilirubin 0.4 mg/dL (0.2-1.2) 03/29/16 06:00 AST 66 U/L (0-41) H 03/29/16 06:00 ALT 48 U/L (0-45) H 03/29/16 06:00 Alkaline Phosphatase 75 U/L (46-116) 03/29/16 06:00 Creatine Kinase 321 U/L (0-225) H 03/30/16 20:47 CK-MB (CK-2) 3.1 ng/mL (0.3-5.0) 03/30/16 20:47 Troponin I < 0.03 ng/mL (0.03-0.06) L 03/30/16 20:47 NT-Pro-B Natriuret Pep 866.7 pg/mL (15.0-125.0) H 03/29/16 06:00 Total Protein 7.5 g/dL (6.0-8.5) 03/29/16 06:00 Albumin 4.3 g/dL (3.0-5.5) 03/29/16 06:00 Amylase 42 U/L (20-104) 03/28/16 20:54 Urine Color Gaby (YELLOW) 03/28/16 21:50 Urine Appearance Cloudy (CLEAR) H 03/28/16 21:50 Urine pH 7.0 (5.0 - 8.0) 03/28/16 21:50 Ur Specific [place] 1.025 (1.010-1.030) 03/28/16 21:50 Urine Protein 2+ mg/dL (NEGATIVE) H 03/28/16 21:50 Urine Ketones Negative mg/dL (NEGATIVE) 03/28/16 21:50 Urine Occult Blood Trace-intact (NEGATIVE) H 03/28/16 21:50 Urine Nitrite Negative (NEGATIVE) 03/28/16 21:50 Urine Bilirubin Negative (NEGATIVE) 03/28/16 21:50 Urine Urobilinogen 1.0 Eu (0.2-1.0) 03/28/16 21:50 Ur Leukocyte Esterase Negative (NEGATIVE) 03/28/16 21:50 Urine Glucose Negative mg/dL (NEGATIVE) 03/28/16 21:50 Assessment/Plan - Assessment/Plan (1) Pneumonia Status: Acute Current Visit: Yes Qualifiers: Pneumonia type: due to unspecified organism Laterality: right Lung location: middle lobe of lung Qualified Code(s): J18.1 - Lobar pneumonia, unspecified organism Assessment: Will continue with present medications, HFN seem to be helping some, will repeat chest x-ray in the AM. (2) Congestive heart failure Status: Acute Current Visit: No Assessment: Mild pulmonary congestion of x-ray with mild elevated BNP. Is getting lasix 40mg q 12. Has lost about 2.5 kg.
[2016-03-31] MEDS: ACETAMINOPHEN 500 MG TABLET PO PRN (02:46)
[2016-03-31] MEDS: ALPRAZOLAM 0.5 MG TABLET PO PRN ×2 (02:46→19:58)
[2016-03-31] MEDS: guaiFENesin DM 100 MG/10 MG/5 ML 118ML BOTTLE PO SCH ×7 (04:36→20:18)
[2016-03-31] MEDS ORDERED: FUROSEMIDE 40 MG/4 ML VIAL ONE (05:15)
[2016-03-31] MEDS ORDERED: LEVOFLOXACIN 500MG/D5W 100ML 100 ML IV ONE (05:15)
[2016-03-31] MEDS: BUDESONIDE 0.5MG/2ML AMPUL.NEB NEB SCH ×6 (05:16→20:34)
[2016-03-31] MEDS: IPRATROPIUM/ALBUTEROL SULFATE 3 ML AMPUL.NEB NEB SCH ×6 (05:16→20:35)
[2016-03-31] MEDS: LEVOTHYROXINE SODIUM 100 MCG TABLET PO SCH (05:42)
[2016-03-31] MEDS: NAPROXEN 250 MG TABLET PO SCH ×2 (08:53→20:00)
[2016-03-31] MEDS: CARVEDILOL 6.25 MG TABLET PO SCH ×2 (08:53→17:45)
[2016-03-31] MEDS: CITALOPRAM HYDROBROMIDE 20 MG TABLET PO SCH (08:53)
[2016-03-31] MEDS: NICOTINE 14mg PATCH.TD24 TD SCH (08:54)
[2016-03-31] MEDS: POTASSIUM CHLORIDE 10 MEQ TABLET.ER PO SCH ×2 (08:54→19:58)
[2016-03-31] MEDS: LEVOFLOXACIN 500MG/D5W 100ML 500 MG in PREMIX BAG 1 BAG IV SCH (08:59)
[2016-03-31] MEDS: FUROSEMIDE 40 MG/4 ML VIAL IVP SCH ×2 (08:59→20:34)
[2016-03-31] MEDS: methylPREDNISolone SOD SUCC 40 MG/ML VIAL IVP SCH ×2 (09:00→20:33)
[2016-03-31] MEDS: SALINE FLUSH 10 ML DISP.SYRIN IV SCH ×2 (09:02→20:01)
--- NOTE | 2016-03-31 13:10 | Inpatient Progress Note ---
Subjective - Required Recertification Statement I anticipate X number of days because-include discharge plan: 2 days - Review of Systems Events since last encounter: Patient is continuing to have some dyspnea and SOB. Is not ambulating far relasted to have dyspnea. Is not sleeping well at [facility]. Continues to have a cough of some green phlegm. Blood cultures NG so far. Pulmonary: Dyspnea, Cough. Denies: Pleuritic Chest Pain Cardiovascular: Orthopnea. Denies: Chest Pain, Palpitations Gastrointestinal: Denies: Nausea, Vomiting, Abdominal Pain Objective - Exam Vitals and I&O: Vital Signs Temp 98.7 F 03/31/16 10:00 Pulse 75 03/31/16 10:00 Resp 22 03/31/16 10:00 BP 124/72 03/31/16 10:00 Pulse Ox 92 03/31/16 10:00 Intake & Output 03/30/16 03/31/16 03/31/16 23:59 11:59 23:59 Intake Total 680 240 Output Total 1250 Balance -570 240 Weight 146.057 kg Intake: Oral 680 240 Output: Urine 1250 Other: Voiding Method Bedside Commode # Voids 3 3 General: Alert, Oriented to Person, Oriented to Place, Oriented to Time, Cooperative, Mild distress Neck: Supple, No JVD Lungs: Speaks full Sentences, Respiratory Distress (milf), Wheezes (mild bilateral with forced expiration.), Rales (continues in the bases bialterally) Cardiovascular: Regular rate, Normal S1, Normal S2, No murmurs. No: Gallops, Rubs Abdomen: Normal bowel sounds, Soft, No tenderness, No hepatospenomegaly, No masses. No: Distended - Results Results: Laboratory Results WBC 6.10 K/ul (4.00-12.00) 03/30/16 06:30 RBC 4.67 M/ul (3.90-5.20) 03/30/16 06:30 Hgb 15.0 g/dL (12.0-16.0) 03/30/16 06:30 Hct 45.0 % (34.5-46.5) 03/30/16 06:30 MCV 96.2 fl (80.0-100.0) 03/30/16 06:30 MCH 32.1 pg (28.0-34.0) 03/30/16 06:30 MCHC 33.3 g/dL (30.0-36.0) 03/30/16 06:30 RDW 14.7 % (11.3-14.3) H 03/30/16 06:30 Plt Count 219 K/mm3 (130-400) 03/30/16 06:30 Neut % (Auto) 87.3 % (39.0-79.0) H 03/30/16 06:30 Lymph % (Auto) 8.1 % (16.0-50.0) L 03/30/16 06:30 [place] % (Auto) 3.5 % (0.0-11.0) 03/30/16 06:30 Eos % (Auto) 0.2 % (0.0-6.8) 03/30/16 06:30 Baso % (Auto) 0.3 (0.0-1.5) 03/30/16 06:30 Neut # 5.3 # k/uL (1.4-7.7) 03/30/16 06:30 Lymph # 0.5 # k/uL (0.6-4.0) L 03/30/16 06:30 [place] # 0.2 # k/uL (0.0-0.9) 03/30/16 06:30 Eos # 0.0 # k/uL (0.0-0.6) 03/30/16 06:30 Baso # 0.0 # k/uL (0.0-0.5) 03/30/16 06:30 Seg Neutrophils % 57 % (39-79) 03/29/16 06:00 Band Neutrophils % 35 % (0-12) H 03/29/16 06:00 Lymphocytes % 7 % (16-50) L 03/29/16 06:00 Reactive Lymphs % 0.6 % (0.0-5.0) 03/30/16 06:30 Monocytes % 1 % (0-11) 03/29/16 06:00 Reactive Lymphs # 0.0 # k/uL (0.0-0.8) 03/30/16 06:30 Plt Morphology Comment Normal (NORMAL) 03/29/16 06:00 RBC Morph Comment Normal (NORMAL) 03/29/16 06:00 Sodium 130 mmol/L (136-145) L 03/30/16 06:30 Potassium 4.0 mmol/L (3.5-5.0) 03/30/16 06:30 Chloride 86 mmol/L (98-110) L 03/30/16 06:30 Carbon Dioxide 40 mmol/L (20-32) H 03/30/16 06:30 BUN 17 mg/dL (10-26) 03/30/16 06:30 Creatinine 0.9 mg/dL (0.4-1.5) 03/30/16 06:30 Estimated Creat Clear 169 03/30/16 06:30 Est GFR ( Amer) > 60 (60-) 03/30/16 06:30 Est GFR (Non-Af Amer) > 60 (60-) 03/30/16 06:30 Glucose 132 mg/dL (70-99) H 03/30/16 06:30 Calcium 7.7 mg/dL (8.5-10.5) L 03/30/16 06:30 Total Bilirubin 0.4 mg/dL (0.2-1.2) 03/29/16 06:00 AST 66 U/L (0-41) H 03/29/16 06:00 ALT 48 U/L (0-45) H 03/29/16 06:00 Alkaline Phosphatase 75 U/L (46-116) 03/29/16 06:00 Creatine Kinase 296 U/L (0-225) H 03/31/16 06:15 CK-MB (CK-2) 3.1 ng/mL (0.3-5.0) 03/30/16 20:47 Troponin I < 0.03 ng/mL (0.03-0.06) L 03/31/16 06:15 NT-Pro-B Natriuret Pep 866.7 pg/mL (15.0-125.0) H 03/29/16 06:00 Total Protein 7.5 g/dL (6.0-8.5) 03/29/16 06:00 Albumin 4.3 g/dL (3.0-5.5) 03/29/16 06:00 Amylase 42 U/L (20-104) 03/28/16 20:54 Urine Color Gaby (YELLOW) 03/28/16 21:50 Urine Appearance Cloudy (CLEAR) H 03/28/16 21:50 Urine pH 7.0 (5.0 - 8.0) 03/28/16 21:50 Ur Specific [place] 1.025 (1.010-1.030) 03/28/16 21:50 Urine Protein 2+ mg/dL (NEGATIVE) H 03/28/16 21:50 Urine Ketones Negative mg/dL (NEGATIVE) 03/28/16 21:50 Urine Occult Blood Trace-intact (NEGATIVE) H 03/28/16 21:50 Urine Nitrite Negative (NEGATIVE) 03/28/16 21:50 Urine Bilirubin Negative (NEGATIVE) 03/28/16 21:50 Urine Urobilinogen 1.0 Eu (0.2-1.0) 03/28/16 21:50 Ur Leukocyte Esterase Negative (NEGATIVE) 03/28/16 21:50 Urine Glucose Negative mg/dL (NEGATIVE) 03/28/16 21:50 Assessment/Plan - Assessment/Plan (1) Pneumonia Status: Acute Current Visit: Yes Qualifiers: Pneumonia type: due to unspecified organism Laterality: right Lung location: middle lobe of lung Qualified Code(s): J18.1 - Lobar pneumonia, unspecified organism Assessment: continue with IV antibiotics. I rené patient has COPD with is exacerbating her breathing issues. (2) Congestive heart failure Status: Acute Current Visit: No Assessment: WIll continue with IV lasix, will get ECHO tomorrow.
[2016-03-31 13:51] LABS: eGFR (African) > 60; eGFR (Non-African) > 60
--- NOTE | 2016-03-31 15:03 | Diagnostic Imaging Report ---
[facility] [id number] [facility].[address] [id number] Report Submission Date: Mar 31, 2016 8:38:58 AM DIP PAINTER Patient Study Name: ALESSIA JEFF Date: Mar 31, 2016 8:11:42 AM DIP PAINTER Modality Type: CR Gender: F Description: CHEST : 50 Institution: [facility] Physician [facility]/MED SURG EXAMINATION: Chest, two views. HISTORY: Pneumonia follow-up. FINDINGS: Comparison is made to exam dated 03/29/2016. The heart remains enlarged. Mild pulmonary vascular congestion persists and is unchanged. There is mild basilar congestion also present with associated mild atelectasis not significantly changed. There is no pleural effusion or pneumothorax. IMPRESSION: 1. Cardiomegaly with pulmonary vascular congestion and basilar congestion/ atelectasis, unchanged. Electronically signed on Mar 31, 2016 8:38:58 AM DIP PAINTER by: Tarik RASHID
[2016-03-31] MEDS ORDERED: PANTOPRAZOLE SODIUM 40 MG TABLET PO ONE (16:06)
[2016-03-31] MEDS: ENOXAPARIN SODIUM 30 MG/0.3 ML DISP.SYRIN SQ SCH (19:58)
[2016-03-31] MEDS: AZITHROMYCIN 500 MG in 0.9 % SODIUM CHLORIDE 250 ML IV SCH (23:47)
[2016-04-01] MEDS: guaiFENesin DM 100 MG/10 MG/5 ML 118ML BOTTLE PO SCH ×6 (01:00→19:46)
[2016-04-01] MEDS: BUDESONIDE 0.5MG/2ML AMPUL.NEB NEB SCH ×4 (01:10→21:28)
[2016-04-01] MEDS: IPRATROPIUM/ALBUTEROL SULFATE 3 ML AMPUL.NEB NEB SCH ×6 (01:10→21:27)
[2016-04-01] MEDS: ALPRAZOLAM 0.5 MG TABLET PO PRN (01:32)
[2016-04-01] MEDS: PANTOPRAZOLE SODIUM 40 MG TABLET PO SCH ×2 (06:14→06:18)
[2016-04-01] MEDS: LEVOTHYROXINE SODIUM 100 MCG TABLET PO SCH (06:17)
[2016-04-01] MEDS: FUROSEMIDE 40 MG/4 ML VIAL IVP SCH ×3 (06:34→19:45)
[2016-04-01 06:53] LABS: eGFR (African) > 60; eGFR (Non-African) > 60
[2016-04-01] MEDS: CARVEDILOL 6.25 MG TABLET PO SCH ×2 (08:21→18:10)
[2016-04-01] MEDS: CITALOPRAM HYDROBROMIDE 20 MG TABLET PO SCH (08:21)
[2016-04-01] MEDS: POTASSIUM CHLORIDE 10 MEQ TABLET.ER PO SCH ×2 (08:21→19:46)
[2016-04-01] MEDS: NAPROXEN 250 MG TABLET PO SCH ×2 (08:21→19:46)
[2016-04-01] MEDS: NICOTINE 14mg PATCH.TD24 TD SCH (08:21)
[2016-04-01] MEDS: SALINE FLUSH 10 ML DISP.SYRIN IV SCH ×2 (08:23→19:48)
[2016-04-01] MEDS ORDERED: LEVOFLOXACIN 500MG/D5W 100ML 100 ML IV ONE (08:24)
[2016-04-01] MEDS: methylPREDNISolone SOD SUCC 40 MG/ML VIAL IVP SCH ×2 (08:25→19:45)
[2016-04-01] MEDS: LEVOFLOXACIN 500MG/D5W 100ML 500 MG in PREMIX BAG 1 BAG IV SCH (08:30)
--- NOTE | 2016-04-01 13:15 | Inpatient Progress Note ---
Subjective - Required Recertification Statement I anticipate X number of days because-include discharge plan: 1 day - Review of Systems Events since last encounter: Patient seems better today. States that she was able to sleep better last noc. Cough seems to be improving at this time. Still has dyspnea with any exertion. General: Denies: Chills Pulmonary: Dyspnea, Cough. Denies: Pleuritic Chest Pain Cardiovascular: Denies: Chest Pain, Orthopnea, Paroxysmal Noc. Dyspnea Gastrointestinal: Denies: Nausea, Vomiting, Abdominal Pain, Diarrhea, Constipation Objective - Exam Vitals and I&O: Vital Signs Temp 97.0 F L 04/01/16 10:00 Pulse 84 04/01/16 10:00 Resp 18 04/01/16 10:00 BP 145/68 04/01/16 10:00 Pulse Ox 90 L 04/01/16 10:00 Intake & Output 03/31/16 04/01/16 04/01/16 23:59 11:59 23:59 Intake Total 780 1730 Output Total 1200 Balance 780 530 Weight 146.057 kg Intake: IV 250 Right Wrist 250 Oral 780 1480 Output: Urine 1200 Other: Voiding Method Bedside Commode Bedside Commode # Voids 7 General: Alert, Oriented to Person, Oriented to Place, Oriented to Time, Cooperative, No acute distress HEENT: Atraumatic Neck: Supple, No JVD Lungs: Rales (right base), Rhonchi (few posteriorly on the right). No: Respiratory Distress, Wheezes Cardiovascular: Regular rate, Normal S1, Normal S2, No murmurs Abdomen: Normal bowel sounds, Soft, No tenderness, No hepatospenomegaly, No masses Skin: Normal, [place], Warm Psych/Mental Status: Mental status NL, Mood NL - Results Results: Laboratory Results WBC 6.10 K/ul (4.00-12.00) 03/30/16 06:30 RBC 4.67 M/ul (3.90-5.20) 03/30/16 06:30 Hgb 15.0 g/dL (12.0-16.0) 03/30/16 06:30 Hct 45.0 % (34.5-46.5) 03/30/16 06:30 MCV 96.2 fl (80.0-100.0) 03/30/16 06:30 MCH 32.1 pg (28.0-34.0) 03/30/16 06:30 MCHC 33.3 g/dL (30.0-36.0) 03/30/16 06:30 RDW 14.7 % (11.3-14.3) H 03/30/16 06:30 Plt Count 219 K/mm3 (130-400) 03/30/16 06:30 Neut % (Auto) 87.3 % (39.0-79.0) H 03/30/16 06:30 Lymph % (Auto) 8.1 % (16.0-50.0) L 03/30/16 06:30 [place] % (Auto) 3.5 % (0.0-11.0) 03/30/16 06:30 Eos % (Auto) 0.2 % (0.0-6.8) 03/30/16 06:30 Baso % (Auto) 0.3 (0.0-1.5) 03/30/16 06:30 Neut # 5.3 # k/uL (1.4-7.7) 03/30/16 06:30 Lymph # 0.5 # k/uL (0.6-4.0) L 03/30/16 06:30 [place] # 0.2 # k/uL (0.0-0.9) 03/30/16 06:30 Eos # 0.0 # k/uL (0.0-0.6) 03/30/16 06:30 Baso # 0.0 # k/uL (0.0-0.5) 03/30/16 06:30 Seg Neutrophils % 57 % (39-79) 03/29/16 06:00 Band Neutrophils % 35 % (0-12) H 03/29/16 06:00 Lymphocytes % 7 % (16-50) L 03/29/16 06:00 Reactive Lymphs % 0.6 % (0.0-5.0) 03/30/16 06:30 Monocytes % 1 % (0-11) 03/29/16 06:00 Reactive Lymphs # 0.0 # k/uL (0.0-0.8) 03/30/16 06:30 Plt Morphology Comment Normal (NORMAL) 03/29/16 06:00 RBC Morph Comment Normal (NORMAL) 03/29/16 06:00 Sodium 131 mmol/L (136-145) L 04/01/16 06:10 Potassium 4.0 mmol/L (3.5-5.0) 04/01/16 06:10 Chloride 83 mmol/L (98-110) L 04/01/16 06:10 Carbon Dioxide > 40 mmol/L (20-32) H 04/01/16 06:10 BUN 22 mg/dL (10-26) 04/01/16 06:10 Creatinine 0.9 mg/dL (0.4-1.5) 04/01/16 06:10 Estimated Creat Clear 169 04/01/16 06:10 Est GFR ( Amer) > 60 (60-) 04/01/16 06:10 Est GFR (Non-Af Amer) > 60 (60-) 04/01/16 06:10 Glucose 118 mg/dL (70-99) H 04/01/16 06:10 Calcium 7.6 mg/dL (8.5-10.5) L 04/01/16 06:10 Total Bilirubin 0.4 mg/dL (0.2-1.2) 03/29/16 06:00 AST 66 U/L (0-41) H 03/29/16 06:00 ALT 48 U/L (0-45) H 03/29/16 06:00 Alkaline Phosphatase 75 U/L (46-116) 03/29/16 06:00 Creatine Kinase 296 U/L (0-225) H 03/31/16 06:15 CK-MB (CK-2) 3.1 ng/mL (0.3-5.0) 03/30/16 20:47 Troponin I < 0.03 ng/mL (0.03-0.06) L 03/31/16 06:15 NT-Pro-B Natriuret Pep 866.7 pg/mL (15.0-125.0) H 03/29/16 06:00 Total Protein 7.5 g/dL (6.0-8.5) 03/29/16 06:00 Albumin 4.3 g/dL (3.0-5.5) 03/29/16 06:00 Amylase 42 U/L (20-104) 03/28/16 20:54 Urine Color Gaby (YELLOW) 03/28/16 21:50 Urine Appearance Cloudy (CLEAR) H 03/28/16 21:50 Urine pH 7.0 (5.0 - 8.0) 03/28/16 21:50 Ur Specific [place] 1.025 (1.010-1.030) 03/28/16 21:50 Urine Protein 2+ mg/dL (NEGATIVE) H 03/28/16 21:50 Urine Ketones Negative mg/dL (NEGATIVE) 03/28/16 21:50 Urine Occult Blood Trace-intact (NEGATIVE) H 03/28/16 21:50 Urine Nitrite Negative (NEGATIVE) 03/28/16 21:50 Urine Bilirubin Negative (NEGATIVE) 03/28/16 21:50 Urine Urobilinogen 1.0 Eu (0.2-1.0) 03/28/16 21:50 Ur Leukocyte Esterase Negative (NEGATIVE) 03/28/16 21:50 Urine Glucose Negative mg/dL (NEGATIVE) 03/28/16 21:50 Assessment/Plan - Assessment/Plan (1) Pneumonia Status: Acute Current Visit: Yes Qualifiers: Pneumonia type: due to unspecified organism Laterality: right Lung location: middle lobe of lung Qualified Code(s): J18.1 - Lobar pneumonia, unspecified organism Comment: WIll get chest x-ray in the AM, [facility] (2) Congestive heart failure Status: Acute Current Visit: No Assessment: will check proBNP in AM
[2016-04-01] MEDS: ONDANSETRON HCL 4 MG TAB.RAPDIS PO PRN (20:43)
[2016-04-01] MEDS: AZITHROMYCIN 500 MG in 0.9 % SODIUM CHLORIDE 250 ML IV SCH (23:47)
[2016-04-01] MEDS: ENOXAPARIN SODIUM 30 MG/0.3 ML DISP.SYRIN SQ SCH (23:47)
[2016-04-02] MEDS: IPRATROPIUM/ALBUTEROL SULFATE 3 ML AMPUL.NEB NEB SCH ×4 (00:29→13:35)
[2016-04-02] MEDS: guaiFENesin DM 100 MG/10 MG/5 ML 118ML BOTTLE PO SCH ×4 (00:30→13:28)
[2016-04-02] MEDS: ALPRAZOLAM 0.5 MG TABLET PO PRN (02:48)
[2016-04-02] MEDS ORDERED: NAPROXEN 250 MG TABLET ONE (04:32)
[2016-04-02] MEDS: FUROSEMIDE 40 MG/4 ML VIAL IVP SCH ×2 (06:00→15:39)
[2016-04-02] MEDS: LEVOTHYROXINE SODIUM 100 MCG TABLET PO SCH (06:04)
[2016-04-02 06:31] LABS: BASOPHILS % 0.6 (0.0-1.5); EOSINOPHILS % 1.3 % (0.0-6.8); LYMPHOCYTES # 0.9 # k/uL (0.6-4.0); MEAN CORPUSCULAR HEMOGLOBIN 31.5 pg (28.0-34.0); MONOCYTES # 0.4 # k/uL (0.0-0.9); NEUTROPHILS # 4.4 # k/uL (1.4-7.7)
[2016-04-02 07:32] LABS: eGFR (African) > 60; eGFR (Non-African) > 60
[2016-04-02] MEDS: CITALOPRAM HYDROBROMIDE 20 MG TABLET PO SCH (08:09)
[2016-04-02] MEDS: CARVEDILOL 6.25 MG TABLET PO SCH (08:09)
[2016-04-02] MEDS: POTASSIUM CHLORIDE 10 MEQ TABLET.ER PO SCH (08:10)
[2016-04-02] MEDS: NICOTINE 14mg PATCH.TD24 TD SCH (08:10)
[2016-04-02] MEDS: NAPROXEN 250 MG TABLET PO SCH (08:11)
[2016-04-02] MEDS ORDERED: LEVOFLOXACIN 500MG/D5W 100ML 100 ML IV ONE (09:23)
[2016-04-02] MEDS: SALINE FLUSH 10 ML DISP.SYRIN IV SCH (09:40)
[2016-04-02] MEDS: LEVOFLOXACIN 500MG/D5W 100ML 500 MG in PREMIX BAG 1 BAG IV SCH (09:45)
[2016-04-02] MEDS: BUDESONIDE 0.5MG/2ML AMPUL.NEB NEB SCH (09:50)
[2016-04-02] MEDS: methylPREDNISolone SOD SUCC 40 MG/ML VIAL IVP SCH (09:50)
[2016-04-02 10:54] VITALS: BP 134/89
--- NOTE | 2016-04-02 13:46 | Diagnostic Imaging Report ---
SIA GUEVARA [facility] [id number] [facility] [address] [address] Report Submission Date: Apr 02, 2016 7:30:18 AM FILM WAXER Patient Study Name: ALESSIA JEFF Date: Apr 02, 2016 6:58:30 AM FILM WAXER Modality Type: CR Gender: F Description: CHEST : 50 Institution: [facility] Physician: SIA GUEVARA Chest, PA and lateral History: Dyspnea, cough Findings: There is no pneumothorax or pleural effusion. There is mild atelectasis in both lung bases. The heart is enlarged. There is mild pulmonary vascular congestion. Since 31 March 2016, no significant change has occurred. Impression: 1. Cardiomegaly and pulmonary vascular congestion. 2. Bilateral lower lobe atelectasis, unchanged. Electronically signed on Apr 02, 2016 7:30:18 AM FILM WAXER by: Dajuan RASHID
--- NOTE | 2016-04-02 16:03 | Discharge Summary ---
Discharge Summary - Discharge Sumary History of Present Illness: Patient presented to ER with SOB. Symptoms started the day before when she started coughing and congestion. Noted wheezing and feelings of sweating and chilling. works in a assisted with influenza patients. He had been ill several days ago. Noted to have RA SAT of 85%. Improved with O2, duonebs, and IV steroids. CXR showed likely RLL infiltrate. Patient will be admitted for treatment. Home Medications: Ambulatory Orders Medication Instructions Recorded Docusate Sodium [Colace] 100 mg PO DAILY av 07/26/15 Citalopram Hydrobromide 10 mg PO DAILY 01/05/16 [Citalopram HBr] Carvedilol [Coreg] 6.25 mg PO BS 02/18/16 Furosemide [Lasix] 80 mg PO DAILY 02/18/16 Ranitidine HCl 300 mg PO 0717 03/31/16 Acetaminophen [Tylenol Extra 500 mg PO Q4H PRN #0 tablet 04/02/16 Strength] Budesonide [Pulmicort] 0.5 mg NEB BID ampul.neb 04/02/16 Ipratropium/Albuterol Sulfate 3 ml NEB Q4 ampul.neb 04/02/16 [Duoneb] Levofloxacin [Levaquin] 500 mg PO D #7 tablet 04/02/16 Losartan Potassium [Cozaar] 25 mg PO QDAY #30 tablet 04/02/16 NICOTINE 14mg [HABITROL 14mg] 1 patch TD DAILY patch.td24 04/02/16 Prednisone 10 mg PO DIRECTED #32 tablet 04/02/16 Consultations this Visit: Cardiology (ECHO) Procedures this Visit: None Allergies/Adverse Reactions: Allergies Allergy/AdvReac Type Severity Reaction Status Date / Time codeine [Codeine] AdvReac Severe stomach Verified 02/18/16 08:50 nalbuphine HCl [From Nubain] AdvReac Severe stomach Verified 02/18/16 08:50 Penicillins AdvReac Intermediate Hives Verified 02/18/16 08:50 Discharge Summary: Patient had bllod cultures drwn which came back no growth. She was started on Levaquin and Azithromycin IV. Was started on HFN treatment of Duonebs. Patient was also given some IV steroids due to bronchospasms. Patient was felt to have a component of CHF also and was given IV Lasix. Patient was seen in consultation with Dr. Coronel. Patient's ejection fraction did improve from 25-35% . Patient was advised to be started Losartan 25mg. Patient continued to desat to 85% on RA at rest, with 2 liters of oxygen does improve to 92%. Patient was discharged on home O2. Patient was advised that she needed to stop smoking. Was given information to help with this. - Final Diagnosis (1) Pneumonia Problems: Continue with po antibiotics, supplemental oxygen therapy. (2) Congestive heart failure Problems: Improved, EJ estimated to be 35%, will continue with lasix at home and monitor weight. Instructed to call of gains more then 3 ibs in 24 hours or 5 lbs in a week. (3) Depressed Problems: continue home medication
== END 2016-04-02 15:30 | disposition home or self-care (01) | DRG 195 ==
LOC: ED 18:52 → SOUTH 22:37
PROVIDERS: ADMIT Family Medicine; ATTEND Family Medicine
DX: J18.9 Pneumonia, unspecified organism (principal); I50.9 Heart failure, unspecified; F32.9 Major depressive disorder, single episode, unspecified
CPT/HCPCS: 36415; 71010; 71020; 80048; 80053; 81002; 82150; 82550; 82553; 83880; 84484; 85025; 93005; 93306; 94640; 94760; 99284; A9270; J0456; J1030; J1650; J1885; J1940; J1956; J2405; J2930; J7030; J7050; J7626; 99222; 99232; 99238; J2920; S1016

== ENCOUNTER 2016-07-31 15:29 | Emergency (ER) | payer OTHER ==
[2016-07-31] MEDS ORDERED: 0.9 % SODIUM CHLORIDE 1,000 ML IV ONE (16:13)
[2016-07-31] MEDS: KETOROLAC TROMETHAMINE 30 MG/1ML VIAL IVP ONE (16:15)
[2016-07-31] MEDS: 0.9 % SODIUM CHLORIDE 1,000 ML IV SCH (16:15)
[2016-07-31 16:16] LABS: BASOPHILS % 0.9 (0.0-1.5); EOSINOPHILS % 2.8 % (0.0-6.8); MONOCYTES % 4.5 % (0.0-11.0); NEUTROPHILS # 11.5 # k/uL (1.4-7.7)
[2016-07-31 16:35] LABS: eGFR (African) > 60; eGFR (Non-African) > 60
[2016-07-31] MEDS ORDERED: POTASSIUM CHLORIDE 20 MEQ TABLET.ER PO ONE (17:41)
[2016-07-31 18:14] VITALS: BP 103/55
--- NOTE | 2016-07-31 22:07 | ED Physician Documentation ---
Chest Pain - HISTORIAN Historian: patient - HPI Stated Complaint: chest pain Chief Complaint: Chest Pain Onset: hours (2) Timing: sudden onset, still present Duration: constant Last known Well Date: 07/30/16 Last Known Well Time: 23:55 Context: activity Severity: moderate Quality: aching, sharp, stabbing Chest Pain Radiation: arms (left, numbness) Chest Pain Signs/Symptoms: denies: nausea, vomiting, diaphoresis, cool extremities, dizziness, dyspnea, tachypnea, tachycardia, hypotension, palpitations, weakness Worsened By: nothing Relieved By: nothing Further Comments: no - ROS CONST: none MS/LYMPH: neck pain GI/: none EYES/ENT: none SKIN/ENDO: none NEURO/PSYCH: none - PAST HX UT risk factors: other (fell on coccxyx 3 days ago) DVT/PE Risk Factors: none TAD/AAA risk factors: none Neuro deficit: none GI disease: none Lung disease: none Surgeries/Procedures: none Allergies/Adverse Reactions: Allergies Allergy/AdvReac Type Severity Reaction Status Date / Time codeine [Codeine] AdvReac Severe stomach Verified 07/31/16 15:52 nalbuphine HCl [From Nubain] AdvReac Severe stomach Verified 07/31/16 15:52 Penicillins AdvReac Intermediate Hives Verified 07/31/16 15:52 Home Medications: Ambulatory Orders Medication Instructions Recorded Docusate Sodium [Colace] 100 mg PO DAILY av 07/26/15 Citalopram Hydrobromide 10 mg PO DAILY 01/05/16 [Citalopram HBr] Carvedilol [Coreg] 6.25 mg PO BS 02/18/16 Furosemide [Lasix] 80 mg PO DAILY 02/18/16 Ranitidine HCl 300 mg PO 0717 03/31/16 Acetaminophen [Tylenol Extra 500 mg PO Q4H PRN #0 tablet 04/02/16 Strength] Budesonide [Pulmicort] 0.5 mg NEB BID ampul.neb 04/02/16 Ipratropium/Albuterol Sulfate 3 ml NEB Q4 ampul.neb 04/02/16 [Duoneb] Losartan Potassium [Cozaar] 25 mg PO QDAY #30 tablet 04/02/16 Prednisone 10 mg PO DIRECTED #32 tablet 04/02/16 Chlorzoxazone [Parafon Forte Dsc] 500 mg PO QID #20 tablet 07/31/16 Meloxicam [Mobic] 7.5 mg PO BID #10 tablet 07/31/16 - SOCIAL HX Smoking History: cigarettes Alcohol Use: none Drug Use: none - FAMILY HX Family HX: none - VITAL SIGNS Vital Signs: Vital Signs Temp Pulse Resp BP Pulse Ox 98.7 F 81 20 128/74 92 07/31/16 15:29 07/31/16 15:29 07/31/16 15:29 07/31/16 15:29 07/31/16 15:29 - REVIEWED ASSESSMENTS Nursing Assessment Reviewed: Yes Vitals Reviewed: Yes Progress - Results/Orders Results/Orders: cbc, cmp, ua, troponin, cxr, ekg, ct c-spine, ct t-spine ordered - Progress Progress: pt. given 30 mg toradol ivp, 40 meq potassium p.o. and 1 liter ns iv in er Critical Care Note - Critical Care Note Total Time (mins): 0 ED Results Lab/Radiology - Lab Results Lab Results: Lab Results 07/31/16 07/31/16 07/31/16 16:10 16:10 16:10 WBC 15.20 K/ul H K/ul (4.00-12.00) RBC 5.12 M/ul M/ul (3.90-5.20) Hgb 16.9 g/dL H g/dL (12.0-16.0) Hct 46.6 % H % (34.5-46.5) MCV 91.0 fl fl (80.0-100.0) MCH 33.0 pg pg (28.0-34.0) MCHC 36.3 g/dL H g/dL (30.0-36.0) RDW 14.3 % % (11.3-14.3) Plt Count 375 K/mm3 K/mm3 (130-400) Neut % (Auto) 75.7 % % (39.0-79.0) Lymph % (Auto) 15.4 % L % (16.0-50.0) Saunders % (Auto) 4.5 % % (0.0-11.0) Eos % (Auto) 2.8 % % (0.0-6.8) Baso % (Auto) 0.9 (0.0-1.5) Neut # 11.5 # k/uL H # k/uL (1.4-7.7) Lymph # 2.3 # k/uL # k/uL (0.6-4.0) Saunders # 0.7 # k/uL # k/uL (0.0-0.9) Eos # 0.4 # k/uL # k/uL (0.0-0.6) Baso # 0.1 # k/uL # k/uL (0.0-0.5) Reactive Lymphs % 0.6 % % (0.0-5.0) Reactive Lymphs # 0.1 # k/uL # k/uL (0.0-0.8) Sodium 137 mmol/L mmol/L (136-145) Potassium 3.3 mmol/L L mmol/L (3.5-5.0) Chloride 88 mmol/L L mmol/L (98-110) Carbon Dioxide 34 mmol/L H mmol/L (20-32) BUN 16 mg/dL mg/dL (10-26) Creatinine 1.0 mg/dL mg/dL (0.4-1.5) Estimated Creat Clear 135 Est GFR ( Amer) > 60 (60 - ) Est GFR (Non-Af Amer) > 60 (60 - ) Glucose 112 mg/dL H mg/dL (70-99) Calcium 9.5 mg/dL mg/dL (8.5-10.5) Total Bilirubin 0.5 mg/dL mg/dL (0.2-1.2) AST 43 U/L H U/L (0-41) ALT 34 U/L U/L (0-45) Alkaline Phosphatase 96 U/L U/L (46-116) Troponin I < 0.03 ng/mL L ng/mL (0.03-0.06) Total Protein 8.5 g/dL g/dL (6.0-8.5) Albumin 4.8 g/dL g/dL (3.0-5.5) - Radiology Radiology Impressions: chest x-ray neg - Orders Orders: ED Orders Category Date Time Status Place IV Lock 1T Care 07/31/16 16:03 Active CHEST 1 VIEW [RAD] Routine Exams 07/31/[address] C-SPINE W/O CONTRAST Stat Exams 07/31/[address] T-SPINE W/O CONTRAST Stat Exams 07/31/16 Ordered CBC/PLATELET/DIFF Routine Lab 07/31/16 16:10 Completed CMP Routine Lab 07/31/16 16:10 Completed TROPONIN I (cTnI) Routine Lab 07/31/16 16:10 Completed URINALYSIS Routine Lab 07/31/16 16:07 Ordered 0.9 % Sodium Chloride [Normal Saline] 1,000 ml Med 07/31/16 16:30 Ordered IV .Q1H Ketorolac Tromethamine [Toradol] Med 07/31/16 16:03 Discontinued 30 mg IVP NOW ONE Potassium Chloride [Klor-Con M20] Med 07/31/16 17:41 Discontinued 40 meq PO NOW ONE EKG WITH COMPARISON Routine Ther 07/31/16 Ordered Chest Pain Physical Exam - EXAM General Appearance: alert, moderate distress EENT: eye inspection normal, ENT inspection normal, pharynx normal, no signs of dehydration, RACHEL, TM's nml Neck: other (positive tenderness left cervical muscles) Respiratory: no resp. distress, nml breath sounds, manifests distinct pain on movement, other (tenderness reproducing chest pain left of sternal border) CVS: reg. rate & rhythm, no murmur, no gallop, no friction rub, pulses full, pulses equal Abdomen: soft, no organomegaly, normal bowel sounds Skin: warm/dry Extremities: non-tender, normal range of motion, no evidence of injury, no edema Neuro: oriented X3, CN's nml as tested, motor nml, sensation nml, mood/affect nml Discharge Clincal Impression: Cervical radiculopathy Prescriptions: Chlorzoxazone [Parafon Forte Dsc] 500 mg PO QID #20 tablet Meloxicam [Mobic] 7.5 mg PO BID #10 tablet Referrals: Emmanuel Taylor MD [Primary Care Provider] - 2 Days Home Medications: Ambulatory Orders Docusate Sodium [Colace] 100 mg PO DAILY av 07/26/15 Citalopram Hydrobromide [Citalopram HBr] 10 mg PO DAILY 01/05/16 Carvedilol [Coreg] 6.25 mg PO BS 02/18/16 Furosemide [Lasix] 80 mg PO DAILY 02/18/16 Ranitidine HCl 300 mg PO 17 03/31/16 Acetaminophen [Tylenol Extra Strength] 500 mg PO Q4H PRN #0 tablet 04/02/16 Budesonide [Pulmicort] 0.5 mg NEB BID ampul.neb 04/02/16 Ipratropium/Albuterol Sulfate [Duoneb] 3 ml NEB Q4 ampul.neb 04/02/16 Losartan Potassium [Cozaar] 25 mg PO QDAY #30 tablet 04/02/16 Prednisone 10 mg PO DIRECTED #32 tablet 04/02/16 Chlorzoxazone [Parafon Forte Dsc] 500 mg PO QID #20 tablet 07/31/16 Meloxicam [Mobic] 7.5 mg PO BID #10 tablet 07/31/16 Comments: discharged in stable condition with above medications Condition: Stable Disposition: 01 HOME, SELF-CARE Decision to Admit: NO Decision Time: 17:50
--- NOTE | 2016-08-01 04:35 | Diagnostic Imaging Report ---
MARYANN FOSS~ [facility] [address] [facility] [address] [place], [place]. [address] ~ ~ ~ ~ Report Submission Date: Jul 31, 2016 4:53:39 PM CDT Patient ~ Study Name: ALESSIA JEFF ~ Date: Jul 31, 2016 4:26:45 PM CDT ~ Modality Type: CT\SR Gender: F ~ Description: CT C-SPINE W/O CONTRAS : 50 ~ Institution: [facility] Physician: MARYANN FOSS ~ ~ ~ ~ Examination: CT cervical spine History: Fall Comparison exams: None provided Technique: CT cervical spine axial imaging with sagittal and coronal reconstruction Findings: Sagittal reconstruction demonstrates normal height and alignment the cervical vertebral bodies. No anterior compression deformity.~ C5/6, C6/7 and C7 /T1 anterior and posterior osteophytes. ~Coronal reconstruction does not demonstrate locked or perched facets. No atlantoaxial abnormality. Axial imaging obtained from the skull base through T1 Lamina and pedicles are intact.~~ No ossific density within the central canal. No prevertebral soft tissue abnormality. Impression:~ No evidence for fracture. ~Degenerative changes. ~ Electronically signed on Jul 31, 2016 4:53:39 PM CDT by: Artur RASHID
--- NOTE | 2016-08-01 04:36 | Diagnostic Imaging Report ---
MARYANN FOSS~ [facility] [address] [address] ~ ~ ~ ~ Report Submission Date: Jul 31, 2016 5:06:01 PM CDT Patient ~ Study Name: ALESSIA JEFF ~ Date: Jul 31, 2016 4:35:41 PM CDT ~ Modality Type: CR Gender: F ~ Description: CHEST : 50 ~ Institution: [facility] Physician: MARYANN FOSS ~ ~ ~ ~ Examination: Portable chest History: Chest discomfort Comparison exam: 02 April 2016 Findings: Single view of the chest demonstrates a normal cardiac and mediastinal silhouette. Body habitus obscures the left base; present on previous examination. Lung vergara without focal infiltrate. No effusion. Osseous structures are appropriate for age. Impression: Stable chest ~ Electronically signed on Jul 31, 2016 5:06:01 PM CDT by: Artur RASHID
--- NOTE | 2016-08-01 04:36 | Diagnostic Imaging Report ---
MARYANN FOSS~ [facility] [place] [facility] [address] [facility] [address] [place], [place]. [address] ~ ~ ~ ~ Report Submission Date: Jul 31, 2016 4:56:59 PM CDT Patient ~ Study Name: ALESSIA JEFF ~ Date: Jul 31, 2016 4:30:38 PM CDT ~ Modality Type: CT\SR Gender: F ~ Description: CT T-SPINE W/O CONTRAS : 50 ~ Institution: [facility] [place] [facility] Physician: MARYANN FOSS ~ ~ ~ ~ Examination: CT thoracic spine History: Fall Comparison exams: None provided Technique: CT thoracic spine axial imaging with sagittal and coronal reconstruction Findings: Sagittal reconstruction demonstrates normal height and alignment the thoracic vertebral bodies. No anterior compression deformity.~ Scattered anterior and posterior osteophytes. Coronal reconstruction does not demonstrate locked or perched facets. Axial imaging obtained from C7 through L1 Lamina and pedicles are intact.~~ No ossific density within the central canal. No prevertebral soft tissue abnormality. Impression:~ No evidence for fracture ~ Electronically signed on Jul 31, 2016 4:56:59 PM CDT by: Artur Carrera [facility] HOSPITALPuneet
== END 2016-07-31 18:11 | disposition home or self-care (01) ==
LOC: ED 15:29
DX: M54.12 Radiculopathy, cervical region (principal); R07.9 Chest pain, unspecified
CPT/HCPCS: 71010; 72125; 72128; 80053; 84484; 85025; 93005; J1885; J7030; 96361; 96374; 99283; S1016

== ENCOUNTER 2016-12-13 11:46 | Emergency (ER) | payer OTHER ==
--- NOTE | 2016-12-13 11:54 | ED Physician Documentation ---
Dyspnea - HISTORIAN Historian: patient - HPI Chief Complaint: Dyspnea Onset: days ago (3 day) Duration: continues in ED Severity: moderate Exacerbated By: exertion Further Comments: yes (Has been having some increase pulmonary congestion, productive cough of some white fomy material. No blood in sputum. Has been using HFN (3 today). Feels like she is chilling, no fever noted. Has been having a lot of nasal stuffiness.) - ROS CONST: recent illness - PAST HX Lung Disease: COPD Cardiac Disease: CHF, CAD Surgeries/Procedures: cholecystectomy, other (thyroidectomy, BTL) Other History: none Immunizations: pneumovax (Prevnar 08/30/15). denies: influenza (2016) Allergies/Adverse Reactions: Allergies Allergy/AdvReac Type Severity Reaction Status Date / Time codeine [Codeine] AdvReac Severe stomach Verified 07/31/16 15:52 nalbuphine HCl [From Nubain] AdvReac Severe stomach Verified 07/31/16 15:52 Penicillins AdvReac Intermediate Hives Verified 07/31/16 15:52 Home Medications: Ambulatory Orders Medication Instructions Recorded Docusate Sodium [Colace] 100 mg PO DAILY av 07/26/15 Citalopram Hydrobromide 10 mg PO DAILY 01/05/16 [Citalopram HBr] Carvedilol [Coreg] 6.25 mg PO BS 02/18/16 Furosemide [Lasix] 80 mg PO DAILY 02/18/16 Ranitidine HCl 300 mg PO 0717 03/31/16 Acetaminophen [Tylenol Extra 500 mg PO Q4H PRN #0 tablet 04/02/16 Strength] Budesonide [Pulmicort] 0.5 mg NEB BID ampul.neb 04/02/16 Ipratropium/Albuterol Sulfate 3 ml NEB Q4 ampul.neb 04/02/16 [Duoneb] Losartan Potassium [Cozaar] 25 mg PO QDAY #30 tablet 04/02/16 Prednisone 10 mg PO DIRECTED #32 tablet 04/02/16 Chlorzoxazone [Parafon Forte Dsc] 500 mg PO QID #20 tablet 07/31/16 Meloxicam [Mobic] 7.5 mg PO BID #10 tablet 07/31/16 Benzonatate [Tessalon Perles] 200 mg PO BID PRN #20 capsule 12/13/16 Levofloxacin [Levaquin] 500 mg PO D #10 tablet 12/13/16 Methylprednisolone [Medrol] 4 mg PO DIRECTED #21 tablet 12/13/16 - SOCIAL HX Smoking History: less than 1 pack/day (1/2 ppd) Alcohol Use: none Drug Use: none - FAMILY HX Family History: no significant history - VITAL SIGNS Vital Signs: Vital Signs Temp Pulse Resp BP Pulse Ox 103/55 07/31/16 18:11 - REVIEWED ASSESSMENTS Nursing Assessment Reviewed: Yes Vitals Reviewed: Yes ED Results Lab/Radiology - Radiology Radiology Impressions: Name: ALESSIA JEFF Date: Dec 13, 2016 12:15:52 PM CDT Modality Type: CR Gender: F Description: CHEST : 50 Institution: [facility] Physician: EMMANUEL GUEVARA - ER Examination: PA and lateral chest. History: Evaluate lung vergara. Comparison exam: 31 July 2016 Findings: PA lateral chest demonstrate a prominent cardiac and mediastinal silhouette. Generalized prominent parenchymal pattern. Mild parenchymal haziness at the left lung base. Minimal indistinctness at the left costophrenic margins. Osseous structures are appropriate for age. Impression: Mild left base infiltrate/effusion. Dyspnea Physical Exam - EXAM General Appearance: alert, mild distress EENT: eye inspection normal, ENT inspection normal, pharynx normal, no signs of dehydration Neck: nml inspection. No: lymphadenopathy Respiratory: no pain on inspiration, speaks full sentences, respiratory distress (mild), rales (few bilat R>L), rhonchi (few scattered). No: wheezes CVS: reg. rate & rhythm, no murmur, no gallop, no friction rub, pulses full, pulses equal Abdomen: non-tender, other Skin: color nml, dry Extremities: non-tender, normal range of motion, edema (1 plus) Neuro/Psych: oriented x3, mood/affect nml Discharge Clincal Impression: Bronchitis Prescriptions: Benzonatate [Tessalon Perles] 200 mg PO BID PRN #20 capsule PRN Reason: for cough Levofloxacin [Levaquin] 500 mg PO D #10 tablet Methylprednisolone [Medrol] 4 mg PO DIRECTED #21 tablet Referrals: Emmanuel Guevara MD [Primary Care Provider] - 2 Days Additional Instructions: Drink a lot of fluids, take Levaquin once a day, take Tesselon Perls as needed for cough. Take Medrol as directed. Call my office on Thursday and let me know how you are doing. STOP SMOKING. Condition: Stable Disposition: 01 HOME, SELF-CARE Decision to Admit: NO Date of Decison to Admit: 12/13/16 Decision Time: 13:14
[2016-12-13] MEDS ORDERED: IPRATROPIUM/ALBUTEROL SULFATE 3 ML AMPUL.NEB NEB ONE (12:02)
[2016-12-13 12:34] LABS: BASOPHILS % 1.2 (0.0-1.5); EOSINOPHILS % 3.8 % (0.0-6.8); MEAN CORPUSCULAR HEMOGLOBIN 30.4 pg (28.0-34.0); MEAN CORPUSCULAR VOLUME 92.5 fl (80.0-100.0); MONOCYTES % 3.1 % (0.0-11.0); NEUTROPHILS # 7.2 # k/uL (1.4-7.7)
[2016-12-13 12:44] LABS: eGFR (African) > 60; eGFR (Non-African) > 60
[2016-12-13 13:37] VITALS: BP 92/50
--- NOTE | 2016-12-13 14:21 | Diagnostic Imaging Report ---
SIA GUEVARA [facility] [address] [facility].[address] [address] Report Submission Date: Dec 13, 2016 12:29:50 PM CDT Patient Study Name: ALESSIA JEFF Date: Dec 13, 2016 12:15:52 PM CDT Modality Type: CR Gender: F Description: CHEST : 50 Institution: [facility] Physician: SIA GUEVARA Examination: PA and lateral chest. History: Evaluate lung vergara. Comparison exam: 31 July 2016 Findings: PA lateral chest demonstrate a prominent cardiac and mediastinal silhouette. Generalized prominent parenchymal pattern. Mild parenchymal haziness at the left lung base. Minimal indistinctness at the left costophrenic margins. Osseous structures are appropriate for age. Impression: Mild left base infiltrate/effusion. Electronically signed on Dec 13, 2016 12:29:50 PM CDT by: Artur RASHID
== END 2016-12-13 13:36 | disposition home or self-care (01) ==
LOC: ED 11:46
DX: J40 Bronchitis, not specified as acute or chronic (principal)
CPT/HCPCS: 71020; 80053; 85025; 87040; 99283

== ENCOUNTER 2017-07-06 12:40 | Emergency (ER) | payer OTHER ==
[2017-07-06 13:40] LABS: BASOPHILS % 0.8 (0.0-1.5); EOSINOPHILS % 3.4 % (0.0-6.8); MEAN CORPUSCULAR HEMOGLOBIN 30.7 pg (28.0-34.0); MEAN CORPUSCULAR VOLUME 94.4 fl (80.0-100.0); MONOCYTES % 3.8 % (0.0-11.0); NEUTROPHILS # 8.5 # k/uL (1.4-7.7)
[2017-07-06] MEDS: ONDANSETRON HCL/PF 4 MG/ 2ML VIAL ONE (13:58)
[2017-07-06 14:04] LABS: eGFR (African) > 60; eGFR (Non-African) > 60
--- NOTE | 2017-07-06 14:09 | Diagnostic Imaging Report ---
DHEERAJ SCHAFFER (DIRECTOR ACCOUNT MANAGEMENT) - ER [facility] [address] [address] Report Submission Date: July 06, 2017 1:57:35 PM CDT Patient Study Name: ALESSIA JEFF Date: July 06, 2017 1:25:00 PM CDT Modality Type: DX Gender: F Description: CHEST : 50 Institution: [facility] Physician: DHEERAJ SCHAFFER (DIRECTOR ACCOUNT MANAGEMENT) - ER Examination: PA and lateral chest. History: Evaluate lung vergara. COUGH X 2-3 WEEKS (Hx) Comparison exam: 13 December 2016 Findings: PA lateral chest demonstrate a prominent cardiac and mediastinal silhouette. Mildly tortuous aorta. Stable interstitial changes. No focal infiltrate. No blunting of the costophrenic margins. Osseous structures are appropriate for age. Impression: No acute pulmonary process. Stable cardiac prominence. Electronically signed on July 06, 2017 1:57:35 PM CDT by: Artur RASHID
--- NOTE | 2017-07-06 14:44 | ED Physician Documentation ---
General Adult - HISTORIAN Historian: patient, spouse - HPI Stated Complaint: Not feeling well Chief Complaint: General Adult Further Comments: yes (67 year old female patient presents with multiple complaints of not feeling well, chronic cough, fatigue, chronic back pain. Patient reports multiple increased stressors - 3 deaths in the family; additional family members living in her home, finacial stress, and had an arguement with her grand-daughter yesterday. Patient denies suicidal throughts or ideations.) - ROS CONST: no problems EYES/ENT: none CVS/RESP: cough. denies: chest pain, shortness of breath GI/: none MS/SKIN/LYMPH: back pain (chronic) NEURO/PSYCH: headache, other (fatigue) - PAST HX Past History: COPD, CHF, hypertension, other (GERD, morbid obesity) Other History: diabetes Type 2 Allergies/Adverse Reactions: Allergies Allergy/AdvReac Type Severity Reaction Status Date / Time codeine [Codeine] AdvReac Severe stomach Verified 07/06/17 13:04 nalbuphine HCl [From Nubain] AdvReac Severe stomach Verified 07/06/17 13:04 Penicillins AdvReac Intermediate Hives Verified 07/06/17 13:04 Home Medications: Ambulatory Orders Medication Instructions Recorded Docusate Sodium [Colace] 100 mg PO DAILY av 07/26/15 Citalopram Hydrobromide 10 mg PO DAILY 01/05/16 [Citalopram HBr] Carvedilol [Coreg] 6.25 mg PO BS 02/18/16 Ranitidine HCl 300 mg PO 0717 03/31/16 Budesonide [Pulmicort] 0.5 mg NEB BID ampul.neb 04/02/16 Ipratropium/Albuterol Sulfate 3 ml NEB Q4 ampul.neb 04/02/16 [Duoneb] Losartan Potassium [Cozaar] 25 mg PO QDAY #30 tablet 04/02/16 Meloxicam [Mobic] 7.5 mg PO BID #10 tablet 07/31/16 Citalopram Hydrobromide 20 mg PO DAILY #30 tablet 07/06/17 [Citalopram HBr] - SOCIAL HX Smoking History: cigarettes (increased to 2 ppd) - FAMILY HX Family History: No - VITAL SIGNS Vital Signs: Vital Signs Temp Pulse Resp BP Pulse Ox 98.2 F 95 H 20 143/87 94 05/21/18 13:07 07/06/17 13:07 07/06/17 13:07 07/06/17 13:07 07/06/17 13:07 - REVIEWED ASSESSMENTS Nursing Assessment Reviewed: Yes Vitals Reviewed: Yes Progress - Progress Progress: Discussed stressors, anxiety and depression with patient and at length. Patient tearful; crying multiple times. On Citalopram 10mg po qd; will increase to 20mg po qd. Instructed patient to follow up with Dr Taylor. Thyroid panel sent out. ED Results Lab/Radiology - Lab Results Lab Results: Lab Results 07/06/17 07/06/17 07/06/17 13:25 13:25 13:25 WBC 10.40 K/ul K/ul (4.00-12.00) RBC 5.02 M/ul M/ul (3.90-5.20) Hgb 15.4 g/dL g/dL (12.0-16.0) Hct 47.4 % H % (34.5-46.5) MCV 94.4 fl fl (80.0-100.0) MCH 30.7 pg pg (28.0-34.0) MCHC 32.6 g/dL g/dL (30.0-36.0) RDW 14.0 % % (11.3-14.3) Plt Count 289 K/mm3 K/mm3 (130-400) Neut % (Auto) 81.0 % H % (39.0-79.0) Lymph % (Auto) 10.4 % L % (16.0-50.0) [place] % (Auto) 3.8 % % (0.0-11.0) Eos % (Auto) 3.4 % % (0.0-6.8) Baso % (Auto) 0.8 (0.0-1.5) Neut # (Auto) 8.5 # k/uL H # k/uL (1.4-7.7) Lymph # (Auto) 1.1 # k/uL # k/uL (0.6-4.0) [place] # (Auto) 0.4 # k/uL # k/uL (0.0-0.9) Eos # (Auto) 0.4 # k/uL # k/uL (0.0-0.6) Baso # (Auto) 0.1 # k/uL # k/uL (0.0-0.5) Reactive Lymphs % 0.6 % % (0.0-5.0) Reactive Lymphs # 0.1 # k/uL # k/uL (0.0-0.8) Sodium 135 mmol/L L mmol/L (136-145) Potassium 4.1 mmol/L mmol/L (3.5-5.1) Chloride 95 mmol/L L mmol/L (98-107) Carbon Dioxide 32 mmol/L H mmol/L (22-30) BUN 14 mg/dL mg/dL (7-17) Creatinine 1.00 mg/dL mg/dL (0.52-1.04) Estimated Creat Clear 142 Est GFR ( Amer) > 60 (60 - ) Est GFR (Non-Af Amer) > 60 (60 - ) Glucose 107 mg/dL H mg/dL (74-106) Calcium 8.6 mg/dL mg/dL (8.4-10.2) Total Bilirubin 0.6 mg/dL mg/dL (0.2-1.3) AST 60 U/L H U/L (15-46) ALT 55 U/L U/L (13-69) Alkaline Phosphatase 112 U/L U/L (38-126) NT-Pro-B Natriuret Pep 269.1 pg/mL H pg/mL (15.0-125.0) Total Protein 8.3 g/dL H g/dL (6.3-8.2) Albumin 4.3 g/dL g/dL (3.5-5.0) - Orders Orders: ED Orders Category Date Time Status CHEST 2VIEW [RAD] Stat Exams 07/06/17 13:13 Completed BNP [NT-proBNP] Stat Lab 07/06/17 13:25 Completed CBC/PLATELET/DIFF Stat Lab 07/06/17 13:25 Completed CMP Stat Lab 07/06/17 13:25 Completed THYROID PANEL (TSH, FT3, FT4) Stat Lab 07/06/17 Ordered UA W/MICRO IF INDICATED Stat Lab 07/06/17 13:13 Ordered Ondansetron HCl/Pf [Zofran 4 mg/2 ml] Med 07/06/17 13:49 Discontinued 4 mg .ROUTE .STK-MED ONE General Adult Physical Exam - PHYSICAL EXAM GENERAL APPEARANCE: tearful, crying EENT: eye inspection normal, RACHEL RESPIRATORY: no resp distress, chest non-tender, breath sounds normal CVS: reg rate & rhythm, heart sounds normal, equal pulses, no murmur, no gallop , PMI nml, no JVD, no friction rub, 24 ABDOMEN: soft, no organomegaly, normal bowel sounds, no abdominal bruit, no distension, other (morbid obesity) SKIN: normal color, warm/dry, NR, INT, PAL, DR EXTREMITIES: non-tender, normal range of motion, no evidence of injury, no edema , J, INJECTION MACHINE OPERATOR NEURO: oriented X3, CN's nml as tested, motor nml, sensation nml, mood/affect nml Discharge Clincal Impression: Depressed Qualifiers: Depression Type: reactive depression Qualified Code(s): F32.9 - Major depressive disorder, single episode, unspecified Prescriptions: Citalopram Hydrobromide [Citalopram HBr] 20 mg PO DAILY #30 tablet Referrals: Emmanuel Taylor MD [Primary Care Provider] - 07/13/17 (Follow up with Dr Taylor next week. ) Additional Instructions: document control supervisor your new citalopram prescription today. It may take 7-14 days before you start to feel the effect of the increased dose. Follow up with Dr Taylor next week. Condition: Stable Decision to Admit: NO Decision Time: 14:44
[2017-07-06 15:19] VITALS: BP 141/63
== END 2017-07-06 15:03 ==
LOC: ED 12:40
DX: F32.9 Major depressive disorder, single episode, unspecified (principal)
CPT/HCPCS: 71046; 80053; 83880; 84439; 84443; 84481; 85025; J2405; 96372; 99284; S1016

== ENCOUNTER 2017-09-29 19:08 | Emergency (ER) | payer OTHER ==
--- NOTE | 2017-09-29 19:43 | ED Physician Documentation ---
General Adult - HISTORIAN Historian: patient - HPI Stated Complaint: Chest pain Chief Complaint: General Adult Onset: minutes Severity: moderate Further Comments: yes (Pt is a 67 yo female with sudden onset of severe chest pain a few minutes after eating dinner while she was sitting in a chair. Pain was epigastric and to the L side. Pt had tingling in her L arm and hand. Pain resolved but then recurred several times, again lasting several minutes. Pt is on O2 NC at night and prn, but has been getting increasingly sob over the past week. No nausea/vomiting or diaphoresis. Pt has hx MO "years ago," without CABG or stents. Pt has had angiography at another, later time. Pt is obese, 136 kg. She has ankle swelling which is "worse than usual." Pt has hx CHF with EF 25% in 2009.) - ROS CONST: no problems EYES/ENT: none CVS/RESP: chest pain, shortness of breath, other (tingling L hand) GI/: none MS/SKIN/LYMPH: none NEURO/PSYCH: tingling (L hand) - PAST HX Past History: other (CHF (EF 25% in 2009), HTN, COPD, HLD, Morbid obesity, thyroid cancer, hypothyroidism, diverticulosis. C. diff 08/01, ) Surgeries/Procedures: other (cholecystectomy, tubal ligation, hysterectomy, thyroidectomy, GERD, back pain.) Allergies/Adverse Reactions: Allergies Allergy/AdvReac Type Severity Reaction Status Date / Time codeine [Codeine] AdvReac Severe stomach Verified 09/29/17 19:28 nalbuphine HCl [From Nubain] AdvReac Severe stomach Verified 09/29/17 19:28 Penicillins AdvReac Intermediate Hives Verified 09/29/17 19:28 Home Medications: Ambulatory Orders Medication Instructions Recorded Docusate Sodium [Colace] 100 mg PO DAILY av 07/26/15 Carvedilol [Coreg] 6.25 mg PO BS 02/18/16 Ranitidine HCl [place] [address]/31/16 Budesonide [Pulmicort] 0.5 mg NEB BID ampul.neb 04/02/16 Ipratropium/Albuterol Sulfate 3 ml NEB Q4 ampul.neb 04/02/16 [Duoneb] Losartan Potassium [Cozaar] 25 mg PO QDAY #30 tablet 04/02/16 Meloxicam [Mobic] 7.5 mg PO BID #10 tablet 07/31/16 Citalopram Hydrobromide 20 mg PO DAILY #30 tablet 07/06/17 [Citalopram HBr] Azithromycin 250 mg PO DAILY #5 tablet 09/29/17 Simethicone [Gas Relief] 80 mg PO QID PRN #30 tab.chew 09/29/17 - SOCIAL HX Smoking History: cigarettes (40+ py, 1 ppd) Alcohol Use: rarely Drug Use: none - FAMILY HX Family History: Yes (Father: , cancer; Mother: CAD, HTN, CKD) - VITAL SIGNS Vital Signs: Vital Signs Temp Pulse Resp BP Pulse Ox 97.6 F 75 20 136/71 97 09/29/17 19:10 09/29/17 19:22 09/29/17 19:10 09/29/17 19:10 09/29/17 19:22 Progress - Progress Progress: CXR: Mild cardiomegaly. Low lung volumes. Bibasilar opacities are seen, right greater than left. Prominent reticular nodular interstitial markings No acute osseous pathology. Impression: 1. Cardiomegaly. Pulmonary vascular congestion. Hypoventilation. 2. Interval worsening with bibasilar opacities, right greater than left which may be due to pneumonia and/or pulmonary edema in the appropriate context. Small bilateral pleural effusions are suggested. Recommend followup to resolution. GI cocktail Simethicone 80 mg po in ER much improved Pt refused admission or transfer for r/o MO. Azithromycin 500 mg po in ER Rx Azithromycin 250 mg po qd x 5 days. Rx Simethicone 80 mg po qid, after meals and at bedtime prn. Chew tabs before swallowing. f/u pcp as soon as possible re: sob/chest pain and need for repeat chest x-ray. - EKG/XRAY/CT EKG: NSR (HR=78; normal FL interval; normal axis; RBBB.) ED Results Lab/Radiology - Orders Orders: ED Orders Category Date Time Status Continuous EKG monitoring Q30M Care 09/29/17 19:22 Active Continuous Pulse Oximetry Q30M Care 09/29/17 19:[address] IV Lock 1T Care 09/29/17 19:22 Active CHEST 1VIEW [RAD] Stat Exams 09/29/17 Ordered CBC/PLATELET/DIFF Routine Lab 09/29/17 19:27 Received CKMB Stat Lab 09/29/17 19:26 Received CMP Routine Lab 09/29/17 19:27 Received CREATINE KINASE Routine Lab 09/29/17 19:27 Received NT-proBNP Stat Lab 09/29/17 19:26 Received TROPONIN I (cTnI) Stat Lab 09/29/17 19:26 Received Oxygen Daily Oxygen 09/29/17 19:30 Ordered EKG WITH COMPARISON Stat Ther 09/29/17 19:22 Ordered General Adult Physical Exam - PHYSICAL EXAM GENERAL APPEARANCE: anxious EENT: pharynx normal NECK: normal inspection, supple RESPIRATORY: no resp distress, chest non-tender, other (distant breath sounds) CVS: reg rate & rhythm, other (distant heart sounds) ABDOMEN: soft, no organomegaly, normal bowel sounds, other (obese) BACK: normal inspection, no CVA tenderness SKIN: warm/dry, normal color EXTREMITIES: non-tender, normal range of motion, no evidence of injury, edema (2+) NEURO: oriented X3, motor nml, sensation nml Discharge Clincal Impression: chest pain/sob GERD (gastroesophageal reflux disease) Qualifiers: Esophagitis presence: esophagitis presence not specified Qualified Code(s): K21.9 - Gastro-esophageal reflux disease without esophagitis Prescriptions: Azithromycin 250 mg PO DAILY #5 tablet Simethicone [Gas Relief] 80 mg PO QID PRN #30 tab.chew PRN Reason: Abdominal Pain Referrals: Emmanuel Taylor MD [Primary Care Provider] - Disposition: 07 AGAINST MEDICAL ADVICE Decision to Admit: NO Decision Time: 21:14
[2017-09-29 19:48] LABS: BASOPHILS % 0.8 (0.0-1.5); EOSINOPHILS % 2.6 % (0.0-6.8); MEAN CORPUSCULAR VOLUME 91.5 fl (80.0-100.0); MONOCYTES % 3.1 % (0.0-11.0); NEUTROPHILS # 7.5 # k/uL (1.4-7.7); eGFR (African) > 60; eGFR (Non-African) > 60
[2017-09-29] MEDS ORDERED: MAG HYDROX/ALUMINUM HYD/SIMETH 30 ML, Lidocaine 2%Visc 15ml 20 MG, PHENobarb/HYOSCY/ATR... PO ONE ×3 (19:50)
[2017-09-29] MEDS ORDERED: MAGNESIUM, ALUMINUM HYDROXIDE 30 ML UDC PO ONE (19:54)
[2017-09-29] MEDS ORDERED: Lidocaine 2%Visc 15ml 20 MG/ML UDC ONE (19:54)
[2017-09-29] MEDS ORDERED: ASPIRIN 325 MG TABLET PO ONE (20:15)
[2017-09-29] MEDS ORDERED: SIMETHICONE 80 MG TAB.CHEW PO ONE (21:11)
[2017-09-29] MEDS ORDERED: AZITHROMYCIN 250 MG TABLET PO ONE (21:12)
[2017-09-29 21:34] VITALS: BP 130/70
--- NOTE | 2017-09-30 06:44 | Diagnostic Imaging Report ---
JOSTIN CHIANG [facility] [id number] [facility] [address] [address] Report Submission Date: Sep 29, 2017 7:47:29 PM CDT Patient Study Name: ALESSIA JEFF Date: Sep 29, 2017 7:31:42 PM CDT Modality Type: DX Gender: F Description: CHEST : 50 Institution: [facility] Physician: JOSTIN CHIANG Single frontal view of the chest History: CHEST PAIN, STARTED APPROX 1 HR AGO (Hx) / ITS.REASON chest pain Note time : 09/29/2017 8:42:39 PM User : [employer] CHEST PAIN - Comparison: July 06, 2017 Mild cardiomegaly. Low lung volumes. Bibasilar opacities are seen, right greater than left. Prominent reticular nodular interstitial markings No acute osseous pathology Impression: 1. Cardiomegaly. Pulmonary vascular congestion. Hypoventilation 2. Interval worsening with bibasilar opacities, right greater than left which may be due to pneumonia and/or pulmonary edema in the appropriate context. Small bilateral pleural effusions are suggested. Recommend followup to resolution. Electronically signed on Sep 29, 2017 7:47:29 PM CDT by: Ashely RASHID
== END 2017-09-29 21:25 | disposition left against medical advice (07) ==
LOC: ED 19:08
DX: R07.9 Chest pain, unspecified (principal); R06.02 Shortness of breath; K21.9 Gastro-esophageal reflux disease without esophagitis; Z53.9 Procedure and treatment not carried out, unspecified reason
CPT/HCPCS: 71045; 80053; 82550; 82553; 83880; 84484; 85025; 85379; 93005; A9270; 99284; S1016

== ENCOUNTER 2017-10-27 14:57 | Outpatient (CLI) | payer OTHER | END 2017-10-27 15:00 | LOC: CARD 14:57 | PROVIDERS: ATTEND Internal Medicine Cardiovascular Disease | DX: I50.9 Heart failure, unspecified (principal); E66.9 Obesity, unspecified; Z72.0 Tobacco use; I10 Essential (primary) hypertension; E78.5 Hyperlipidemia, unspecified | CPT/HCPCS: G0463 ==

== ENCOUNTER 2018-03-18 17:12 | Emergency (ER) | payer OTHER ==
[2018-03-18] MEDS ORDERED: methylPREDNISolone SOD SUCC 125 MG/2 ML VIAL IVP ONE (17:23)
--- NOTE | 2018-03-18 17:25 | ED Physician Documentation ---
General Adult - HISTORIAN Historian: patient - HPI Stated Complaint: right side facial droop Chief Complaint: General Adult Additional Information: Patient presents to ED with a 24 hour history of right sided facial numbness/facial droop. Patient states she started feeling numbness/tingling in her right face today. This morning she noticed her mouth was drooping on the right side. As the day progressed she was having trouble closing her eye and her eye was tearing/burning. Onset: hours (24) Timing: still present, worse - ROS CONST: denies: fever CVS/RESP: denies: chest pain, shortness of breath GI/: denies: abdominal pain, vomiting, nausea, diarrhea MS/SKIN/LYMPH: denies: neck pain NEURO/PSYCH: tingling (right face), numbness (right face). denies: headache, dizziness - PAST HX Past History: COPD, hypertension Other History: none Surgeries/Procedures: none Allergies/Adverse Reactions: Allergies Allergy/AdvReac Type Severity Reaction Status Date / Time codeine [Codeine] AdvReac Severe stomach Verified 09/29/17 19:28 nalbuphine HCl [From Nubain] AdvReac Severe stomach Verified 09/29/17 19:28 Penicillins AdvReac Intermediate Hives Verified 09/29/17 19:28 Home Medications: Ambulatory Orders Medication Instructions Recorded Docusate Sodium [Colace] 100 mg PO DAILY av 07/26/15 Carvedilol [Coreg] 6.25 mg PO BS 02/18/16 Ranitidine HCl 300 mg PO 0717 03/31/16 Budesonide [Pulmicort] 0.5 mg NEB BID ampul.neb 04/02/16 Ipratropium/Albuterol Sulfate 3 ml NEB Q4 ampul.neb 04/02/16 [Duoneb] Losartan Potassium [Cozaar] 25 mg PO QDAY #30 tablet 04/02/16 Meloxicam [Mobic] 7.5 mg PO BID #10 tablet 07/31/16 Citalopram Hydrobromide 20 mg PO DAILY #30 tablet 07/06/17 [Citalopram HBr] Azithromycin 250 mg PO DAILY #5 tablet 09/29/17 Simethicone [Gas Relief] 80 mg PO QID PRN #30 tab.chew 09/29/17 predniSONE [Deltasone] 20 mg PO DIRECTED #20 tablet 03/18/18 - SOCIAL HX Smoking History: cigarettes, greater than 1 pack/day Alcohol Use: none Drug Use: none - FAMILY HX Family History: No - VITAL SIGNS Vital Signs: Vital Signs Temp Pulse Resp BP Pulse Ox 130/70 09/29/17 21:25 - REVIEWED ASSESSMENTS Nursing Assessment Reviewed: Yes Vitals Reviewed: Yes ED Results Lab/Radiology - Orders Orders: ED Orders Category Date Time Status CBC/PLATELET/DIFF Routine Lab 03/18/18 Ordered CMP [CMP] Routine Lab 03/18/18 Ordered methylPREDNISolone SOD SUCC [Solu-MEDROL] Med 03/18/18 17:23 Once 125 mg IVP NOW ONE General Adult Physical Exam - PHYSICAL EXAM GENERAL APPEARANCE: no distress EENT: RACHEL, other (right eye tearing/redness) NECK: supple RESPIRATORY: no resp distress, chest non-tender, breath sounds normal CVS: reg rate & rhythm, heart sounds normal ABDOMEN: soft, normal bowel sounds. No: tenderness BACK: No: no CVA tenderness SKIN: warm/dry, normal color EXTREMITIES: non-tender, edema (+1 lower extremity edema bilaterally) NEURO: oriented X3, facial droop (involving right eye, right mouth, right forehead) Discharge Clincal Impression: Gardner's palsy Prescriptions: predniSONE [Deltasone] 20 mg PO DIRECTED #20 tablet Referrals: Emmanuel Taylor MD [Primary Care Provider] - 2 Days Additional Instructions: 1. Tylenol as needed for pain 2. Take Prednisone as directed 3. Use Artificial tears as needed 4. Use eye patch or paper tape to keep eye closed during sleep 5. Follow up with PCP within 3 days 6. Return to ER with new or worsening symptoms Condition: Stable Disposition: 01 HOME, SELF-CARE Decision to Admit: NO Date of Decison to Admit: 03/18/18 Decision Time: 18:22
[2018-03-18 17:59] LABS: BASOPHILS % 0.7 (0.0-1.5); EOSINOPHILS % 3.4 % (0.0-6.8); MONOCYTES % 5.3 % (0.0-11.0); NEUTROPHILS # 7.9 # k/uL (1.4-7.7)
[2018-03-18 18:13] LABS: eGFR (Non-African) > 60
[2018-03-18 18:40] VITALS: BP 96/82
== END 2018-03-18 18:37 | disposition home or self-care (01) ==
LOC: ED 17:12
DX: G51.0 Bell's palsy (principal)
CPT/HCPCS: 36415; 80053; 85025; 96374; 99283; 99284; J2930; S1016